=== PATIENT | male | born 1935 | race Caucasian/White ===

== ENCOUNTER 2017-07-09 20:03 | Inpatient (IN) | payer MEDICARE, OTHER ==
[~2017-07-09] VITALS: Ht 180.3 cm; Wt 77.3 kg
--- NOTE | ~2017-07-09 | HP ---
PATIENT: SEKOU MCGINNIS MEDICAL RECORD: [id number] ACCOUNT: [id number] LOCATION:[address] [address] : 35 ADMISSION DATE: 07/09/17 HISTORY AND PHYSICAL EXAMINATION REASON FOR ADMISSION: Shortness of breath and weakness. HISTORY OF PRESENT ILLNESS: The patient is an 81-year-old male with longstanding history of smoking and COPD. He states he has been weak for the last 6 months. He presented to the Emergency Room because of increasing shortness of breath and weakness, most pronounced over the last 2 weeks. He went to a grandchild's birthday in [place], [place] over the weekend. He became worse. There was coughing all the time. Sputum has been white to slightly yellow. He was more short of breath and came to the Emergency Room for that reason. Denies hemoptysis or weight change. He has been using a Nicoderm patch he bought over the counter, but he is still smoking. 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 He has had basal cell carcinomas removed from his skin on multiple occasions. Osteoarthritis, BPH, basal cell carcinoma. Aortic sclerosis and negative stress test [place] [address] Huertas. PAST SURGICAL HISTORY: As above. SOCIAL HISTORY: He has been about 3 years. Smokes heavily. Drinks minimal alcohol. He has a daughter living in town. FAMILY HISTORY: Unknown as he is adopted. MEDICATIONS: Verapamil 120 mg a day, simvastatin 40 mg at bedtime, fenofibrate 48 mg tablet 1 tablet daily, PreserVision AREDS 2 one tablet p.o. daily. ALLERGIES: None mentioned. REVIEW OF SYSTEMS: GENERAL: Fatigued for 6 months. No weight change. HEENT: No recent sinus congestion or sore throat. He has chronic difficulty with his vision due to macular degeneration. RESPIRATORY: Increasing shortness of breath and cough for the last 2 weeks, worse in the last 48 hours. Sputum has been white to yellow. No hemoptysis. CARDIAC: No exertional or rest chest pain, claudication, or edema. GASTROINTESTINAL: No nausea, vomiting, change in stools, blood per rectum, or dysphagia. ENDOCRINE: Denies polyuria, polydipsia, heat or cold intolerance. NEUROLOGIC: No history of stroke, TIA, or vascular headaches. INTEGUMENT: He has multiple keratosis, but no recent new lesions he has noted, pruritus, or icterus. GENITOURINARY: Nocturia once or twice nightly. MUSCULOSKELETAL: Chronic lumbago without sciatica. PSYCHIATRIC: Admits to chronically depressed mood. PHYSICAL EXAMINATION: VITAL SIGNS: An 81-year-old male, at this time in no acute distress, on HISTORY AND PHYSICAL [id number] SEKOU MCGINNIS H supplemental oxygen. Vital signs show a temperature of 98.3 Fahrenheit orally, pulse 93 and regular, respirations 18, blood pressure 154/93 with a sat of 95% on 2 liters. HEENT: Normocephalic. Eyes are clear. Pupils are reactive. He has fair vision. Oropharynx unremarkable. NECK: No bruits or masses. CHEST: He has distant breath sounds without wheeze or rales. HEART: Regular rate with mild aortic sclerotic murmur II/ noted. ABDOMEN: Soft. RECTAL: Deferred. EXTREMITIES: No cyanosis, clubbing, or edema. INTEGUMENT: He has multiple seborrheic and actinic keratosis on his skin. He is nonicteric. NEUROLOGICAL: He is oriented to person, place, and time. Cranial nerves are grossly intact. Gait is normal. LABORATORY DATA: Shows a white count of 8500 with 95% polys, H&H of 13 and 39.9 respectively. Chemistry: BUN and creatinine are 24 and 1.4, glucose 100. Cardiac enzymes are negative. ProBNP is 71. Potassium is 4.3. ABG showed pH of 7.442 with a pO2 of 73, CO2 of 38.6 on 2 liters. Urinalysis was unremarkable. Chest x-ray shows hyperinflation suggesting COPD, calcified granuloma in the left upper lobe, chronic rib fractures of ribs 7, 9, and 10 posteriorly on the left, patchy opacities in the lung bases possibly related to atelectasis or pneumonia. ASSESSMENT: 1. Exacerbation of chronic obstructive pulmonary disease. 2. Possible pneumonia. 3. Hypertension. 4. Hyperlipidemia. 5. Macular degeneration. 6. BPH. PLAN: The patient will be admitted for cultures, pulmonary toilet, IV antibiotics. Further workup pending clinical course. TRANSINT:[id number] Voice Confirmation ID: [id number] DOCUMENT ID: [id number] KRISTINA GLYNN MD at 2100 CC: [id number] DICTATION DATE: 07/10/17635 RADIO ELECTRONICS OFFICER: 07/10/17 0842 DIS IN 07/13/[address] [facility] [address] [place] [id number]
[2017-07-09 20:38] LABS: APPEARANCE CLEAR (CLEAR); BILIRUBIN NEGATIVE (NEGATIVE); COLOR YELLOW (YELLOW); GLUCOSE NEGATIVE (NEGATIVE); KETONE NEGATIVE (NEGATIVE); NITRITE NEGATIVE (NEGATIVE); PROTEIN NEGATIVE (NEGATIVE); UROBILINOGEN NORMAL (NORMAL)
[2017-07-09 21:09] LABS: BASOPHILS 0.2 % (0-2); EOSINOPHILS 2.5 % (0-7); HEMATOCRIT 41.6 % (42.0-54.0); HEMOGLOBIN 13.8 g/dL (13.5-17.5); IMMATURE GRANULOCYTES 0.2 % (0-5); LYMPHOCYTES 16.2 % (15-50); MCH 28.6 pg (26.0-34.0); MCHC 33.2 g/dL (31.0-37.0); MCV 86.3 fL (80.0-100.0); MEAN PLATELET VOLUME 10.2 fL (7.4-10.4); NEUTROPHILS 68.9 % (40-80); RBC 4.82 10x6/uL (4.20-6.10); RDW 14.2 % (11.5-14.5); WBC 8.5 10x3/uL (4.8-10.8)
[2017-07-09 21:11] LABS: PLATELET COUNT 262 10x3/uL (130-400)
[2017-07-09 21:14] LABS: INR 0.99 (0.85-1.17); PROTIME 12.7 SECONDS (11.6-15.0)
[2017-07-09 21:16] LABS: APTT 33.7 SECONDS (22.8-39.4)
[2017-07-09 21:17] LABS: D-DIMER-QUANTITATIVE 0.86 ug/mLFEU (0.20-0.54)
[2017-07-09 21:19] LABS: ALBUMIN 3.5 g/dL (3.4-5.0); ALKALINE PHOSPHATASE 63 U/L (46-116); ALT (SGPT) 19 U/L (10-68); BILIRUBIN - TOTAL 0.18 mg/dL (0.2-1.3); CALC OSMOLALITY 281 mosm/kg (275-300); CALCIUM 9.2 mg/dL (8.5-10.1); CARBON DIOXIDE 26.6 mmol/L (21.0-32.0); CHLORIDE - SERUM 103 mmol/L (98-107); CREATININE - SERUM 1.4 mg/dL (0.6-1.3); GLUCOSE 101 mg/dL (74-106); POTASSIUM - SERUM 4.3 mmol/L (3.5-5.1); PROTEIN - SERUM 7.5 g/dL (6.4-8.2); SODIUM 139 mmol/L (136-145); UREA NITROGEN 24 mg/dL (7-18); eGFR NON AFRICAN AMERICAN 52 mL/min (90-120)
[2017-07-09 21:42] LABS: CKMB 2.5 U/L (0.0-3.6); CREATINE KINASE 102 UL (21-232); PRO BNP 71 pg/mL (0-450)
[2017-07-09 21:46] LABS: TROPONIN-I < 0.017 ng/mL (0.000-0.060)
[2017-07-10 05:02] LABS: BASOPHILS 0 % (0-2); EOSINOPHILS 0 % (0-7); HEMATOCRIT 39.9 % (42.0-54.0); IMMATURE GRANULOCYTES 0.1 % (0-5); LYMPHOCYTES 4.4 % (15-50); MCHC 32.6 g/dL (31.0-37.0); MCV 85.8 fL (80.0-100.0); MEAN PLATELET VOLUME 10.3 fL (7.4-10.4); NEUTROPHILS 94.5 % (40-80); PLATELET COUNT 251 10x3/uL (130-400); RBC 4.65 10x6/uL (4.20-6.10); RDW 14.1 % (11.5-14.5); WBC 8.4 10x3/uL (4.8-10.8)
[2017-07-10 05:19] LABS: ALBUMIN 3.4 g/dL (3.4-5.0); ANION GAP 13.8 mmol/L (8-16); BILIRUBIN - TOTAL 0.2 mg/dL (0.2-1.3); CALCIUM 9.3 mg/dL (8.5-10.1); CARBON DIOXIDE 22.8 mmol/L (21.0-32.0); CREATININE - SERUM 1.2 mg/dL (0.6-1.3); POTASSIUM - SERUM 4.6 mmol/L (3.5-5.1); PROTEIN - SERUM 6.7 g/dL (6.4-8.2)
[2017-07-10] MEDS ORDERED: XANAX0.25 MG PO (16:23)
[2017-07-10 16:25] VITALS: BP 149/78
[2017-07-10 16:45] VITALS: BP 149/78; Ht 180.3 cm; Wt 77.3 kg
[2017-07-10 21:54] VITALS: BP 128/64
[2017-07-11 01:01] VITALS: BP 115/50
[2017-07-11 04:47] VITALS: BP 124/64
[2017-07-11 07:57] VITALS: BP 127/61
[2017-07-11 12:01] VITALS: BP 119/61
[2017-07-11 16:02] VITALS: BP 128/74
[2017-07-11 21:03] VITALS: BP 165/75
[2017-07-12] VITALS (8 sets, daily range): BP systolic 115–174; BP diastolic 52–84
[2017-07-12] MEDS ORDERED: PRESERVISION AR1 CAP PO (12:44)
[2017-07-13 04:29] VITALS: BP 133/72
[2017-07-13 08:40] VITALS: BP 164/81
[2017-07-13 12:36] VITALS: BP 150/73
[2017-07-13] MEDS ORDERED: TRICOR48 MG PO (12:36)
[2017-07-13] MEDS ORDERED: ZOCOR20 MG PO (12:37)
[2017-07-13] MEDS ORDERED: CALAN SR120 MG PO (12:37)
[2017-07-13] MEDS ORDERED: AUGMENTIN 875-11 TAB PO (12:42)
[2017-07-13] MEDS ORDERED: VENTOLIN HFA18 GM INH (12:42)
[2017-07-13] MEDS ORDERED: MEDROL DOSE PACK4 MG PO (12:42)
== END 2017-07-13 13:30 | disposition home or self-care (01) | DRG 190 ==
LOC: D.ER 20:03 → D.EDHOLD 23:00 → D.MS 23:00
PROVIDERS: Family Medicine
DX: J44.0 Chronic obstructive pulmonary disease with (acute) lower respiratory infection (principal); J18.9 Pneumonia, unspecified organism; J44.1 Chronic obstructive pulmonary disease with (acute) exacerbation; I10 Essential (primary) hypertension; E78.5 Hyperlipidemia, unspecified; H35.30 Unspecified macular degeneration; N40.0 Benign prostatic hyperplasia without lower urinary tract symptoms; F17.200 Nicotine dependence, unspecified, uncomplicated

== ENCOUNTER → 2017-09-03 08:12 | Outpatient (CLI) | payer MEDICARE, OTHER ==
[2017-07-10 16:45] VITALS: BMI 23.7
[~2017-09-03 08:12] MED LIST: AUGMENTIN 875-11 TAB PO; CALAN SR120 MG PO; MEDROL DOSE PACK4 MG PO; PRESERVISION AR1 CAP PO; TRICOR48 MG PO; VENTOLIN HFA18 GM INH; XANAX0.25 MG PO; ZOCOR20 MG PO
== END | disposition home or self-care (01) ==
LOC: D.CT 08:12
DX: J18.9 Pneumonia, unspecified organism (principal)

== ENCOUNTER 2017-10-30 17:59 | Inpatient (IN) | payer MEDICARE, OTHER ==
[~2017-10-30] VITALS: Ht 180.3 cm; Wt 75.5 kg
--- NOTE | ~2017-10-30 | HP ---
PATIENT: SEKOU MCGINNIS MEDICAL RECORD: [id number] ACCOUNT: [id number] LOCATION:[address] : 35 ADMISSION DATE: 10/30/17 HISTORY AND PHYSICAL EXAMINATION REASON FOR ADMISSION: Nausea with epigastric pain. HISTORY OF PRESENT ILLNESS: The patient is an 82-year-old male with history of hyperlipidemia and COPD. He, 2 days ago after eating 2 egg rolls, developed some epigastric discomfort and nausea. It lasted throughout the day yesterday and the pain became more intense. He initially had some dark stools for some time as well, but he had been taking probiotics likely that caused stool color change. He denies taking oral medications. Nonetheless, he came to the emergency room for this reason and was found to have an elevated lipase and amylase and was admitted for further evaluation. He denies any fatty food intolerance or history of previous gallbladder disease, but he does have a history of CT evident calcification in his pancreas suggesting chronic pancreatitis. He is not an alcohol drinker, but is a heavy smoker. PAST MEDICAL HISTORY: Hospitalized 07/03 for exacerbation of COPD. PFTs in 2016 showed FEV1 of 1.46 at 54% of predicted. History of keratoacanthoma removed from his nose. Basal cell carcinomas removed from his skin multiple times. Osteoarthritis, hyperlipidemia, BPH, aortic sclerosis. He had negative stress test in 2016. PAST SURGICAL HISTORY: Skin cancers removed as above, otherwise negative. SOCIAL HISTORY: He has been for 5 years. Heavy smoker. Drinks no alcohol at all. ALLERGIES: None mentioned. FAMILY HISTORY: Unknown as he is adopted. HOME MEDICATIONS: Augmentin 875 b.i.d. started 2 days ago for upper respiratory tract infection, HFA Ventolin inhaler 1-2 puffs every 6 hours p.r.n., TriCor 48 mg daily, Zocor 40 mg at bedtime, Calan SR 120 mg p.o. daily, Xanax 0.25 t.i.d. p.r.n. anxiety, Medrol Dosepak started 10/30, PreserVision 1 cap p.o. b.i.d., probiotics 1 p.o. daily. REVIEW OF SYSTEMS: GENERAL: He has had no fever, fatigue, or weight change. HEENT: No recent visual change. He has had sinus congestion and off color rhinorrhea. CARDIAC: Denies chest pain, palpitations, edema, or claudication symptoms. RESPIRATORY: He has had a productive yellow-green cough recently without hemoptysis. GASTROINTESTINAL: Nausea without vomiting. He has had some dark stools recently. Epigastric pain for the last 24 hours. No prior history of gallbladder disease or peptic ulcer disease. He can not remember when he had his last colonoscopy or who performed it. GENITOURINARY: Nocturia once nightly. ENDOCRINE: Denies polyuria, polydipsia, heat or cold intolerance. INTEGUMENTARY: No rash or itching or new skin lesions. NEUROLOGIC: Denies history of strokes, headaches, seizures, memory loss, or HISTORY AND PHYSICAL [id number] SEKOU MCGINNIS balance issues. PSYCHIATRIC: Denies depressed mood. PHYSICAL EXAMINATION: VITAL SIGNS: Temperature is 98.7, respirations are 22, blood pressure 150/92, O2 sat of 96% on room air. HEENT: Normocephalic. Eyes are clear with arcus senilis OU. Oropharynx is unremarkable. NECK: Supple, without bruits or masses. CHEST: He has faint wheezes in the upper lobes without rales on forced expiration. HEART: Regular without murmur. PMI appropriate. ABDOMEN: Epigastric area is minimally tender to deep palpation. Bowel sounds are active. RECTAL: Revealed no stool in the vault. GENITOURINARY: Prostate is minimally enlarged. No suspicious nodules. EXTREMITIES: No CC&E. INTEGUMENT: Scarring from previous skin biopsies, several seborrheic keratoses noted. LABORATORY DATA: Shows a white count of 8000, H&H of 9.3 and 30.3 with an MCV of 76.7, platelet count of 345,000. Chemistry is unremarkable. Glucose is 87. Iron is low at 12. TIBC is normal at 377. Iron saturation is low at 3. Ferritin is 12. Liver functions are normal. Amylase of 430. Lipase of 2030. UA; trace protein, otherwise negative. Chest x-ray shows patchy right lower lobe airspace disease representing atelectasis or pneumonia. CT of abdomen and pelvis: Calcification in the pancreas suggesting chronic pancreatitis, mild inflammatory changes adjacent to the peripancreatic fat, bilateral renal cysts, abdominal aortic aneurysm of 4 x 4.2 cm, and arthritis in the lumbar spine. ASSESSMENT: 1. Kdzhi-um-vvfpnad pancreatitis, etiology unknown. 2. Iron-deficiency anemia, suspected GI blood loss. 3. Asymptomatic aortic aneurysm. 4. Chronic obstructive pulmonary disease. 5. Bronchitis. 6. Hyperlipidemia. 7. Renal cysts, benign appearing. PLAN: We will hold TriCor and Zocor at this time. N.p.o. status. Check stool for occult blood. Place on Pepcid and Protonix. GI consult. Further workup pending clinical course. TRANSINT:[id number] Voice Confirmation ID: [id number] DOCUMENT ID: [id number] HISTORY AND PHYSICAL [id number] SEKOU MCGINNIS TIMOTHY MD at 1954 CC: [id number] DICTATION DATE: 10/31/17716 REVIEW SCHEDULING COORDINATOR: 10/31/17 08 ADM IN [place] [id number] [place] [id number]
[2017-10-30 18:55] LABS: BASOPHILS 0.1 % (0-2); EOSINOPHILS 3.7 % (0-7); HEMATOCRIT 30.3 % (42.0-54.0); HEMOGLOBIN 9.3 g/dL (13.5-17.5); IMMATURE GRANULOCYTES 0.2 % (0-5); LYMPHOCYTES 9.8 % (15-50); MCH 23.5 pg (26.0-34.0); MCHC 30.7 g/dL (31.0-37.0); MCV 76.7 fL (80.0-100.0); MEAN PLATELET VOLUME 9.3 fL (7.4-10.4); MONOCYTES 10.6 % (2-11); NEUTROPHILS 75.6 % (40-80); PLATELET COUNT 345 10x3/uL (130-400); RBC 3.95 10x6/uL (4.20-6.10); RDW 15.6 % (11.5-14.5); WBC 8.3 10x3/uL (4.8-10.8)
[2017-10-30 19:18] LABS: ALBUMIN 3.7 g/dL (3.4-5.0); ALKALINE PHOSPHATASE 57 U/L (46-116); ALT (SGPT) 16 U/L (10-68); BILIRUBIN - TOTAL 0.23 mg/dL (0.2-1.3); CALC OSMOLALITY 278 mosm/kg (275-300); CALCIUM 9.2 mg/dL (8.5-10.1); CARBON DIOXIDE 28.6 mmol/L (21.0-32.0); CHLORIDE - SERUM 103 mmol/L (98-107); CREATININE - SERUM 1.2 mg/dL (0.6-1.3); GLUCOSE 114 mg/dL (74-106); PROTEIN - SERUM 7.1 g/dL (6.4-8.2); SODIUM 138 mmol/L (136-145); UREA NITROGEN 18 mg/dL (7-18); eGFR NON AFRICAN AMERICAN 61 mL/min (90-120)
[2017-10-30 19:21] LABS: AMYLASE - SERUM 284 U/L (25-115)
[2017-10-30 19:30] LABS: LIPASE 1773 U/L (73-393); TROPONIN-I < 0.017 ng/mL (0.000-0.060)
[2017-10-30 21:00] VITALS: BP 146/81
[2017-10-30 21:16] LABS: COLOR YELLOW (YELLOW)
[2017-10-30 21:17] LABS: APPEARANCE CLEAR (CLEAR); BILIRUBIN NEGATIVE (NEGATIVE); GLUCOSE NEGATIVE (NEGATIVE); KETONE NEGATIVE (NEGATIVE); NITRITE NEGATIVE (NEGATIVE); PROTEIN TRACE mg/dL (NEGATIVE); UROBILINOGEN NORMAL (NORMAL)
[2017-10-30 23:23] VITALS: BMI 24.0
[2017-10-31] VITALS: BP 156/84
[2017-10-31 04:00] VITALS: BP 139/78
[2017-10-31 05:39] LABS: BASOPHILS 0.1 % (0-2); EOSINOPHILS 2.3 % (0-7); IMMATURE GRANULOCYTES 0.1 % (0-5); LYMPHOCYTES 7.8 % (15-50); MCH 23.6 pg (26.0-34.0); MCHC 30.8 g/dL (31.0-37.0); MCV 76.7 fL (80.0-100.0); MEAN PLATELET VOLUME 9.3 fL (7.4-10.4); MONOCYTES 12.8 % (2-11); NEUTROPHILS 76.9 % (40-80); PLATELET COUNT 294 10x3/uL (130-400); RBC 3.39 10x6/uL (4.20-6.10); RDW 15.5 % (11.5-14.5)
[2017-10-31 06:09] LABS: ALBUMIN 3.2 g/dL (3.4-5.0); ANION GAP 10.1 mmol/L (8-16); BILIRUBIN - TOTAL 0.27 mg/dL (0.2-1.3); CALCIUM 8.6 mg/dL (8.5-10.1); CARBON DIOXIDE 26.2 mmol/L (21.0-32.0); CREATININE - SERUM 1.1 mg/dL (0.6-1.3); POTASSIUM - SERUM 4.3 mmol/L (3.5-5.1); PROTEIN - SERUM 6.3 g/dL (6.4-8.2)
[2017-10-31 06:34] LABS: % SATURATION 3 % (15-55); IRON 12 ug/dl (35-150); TOTAL IRON BIND CAPACITY 377 ug/dl (260-445); UNSAT IRON BIND CAPACITY 365 ug/dl (150-375)
[2017-10-31 07:00] LABS: FERRITIN 12 ng/mL (3-244); LDH 142 U/L (85-227)
[2017-10-31 07:47] LABS: INR 1.09 (0.85-1.17); PROTIME 13.7 SECONDS (11.6-15.0)
[2017-10-31 07:48] LABS: APTT 31.7 SECONDS (22.8-39.4)
[2017-10-31 08:36] VITALS: BP 154/88
[2017-10-31 09:07] LABS: HELICOBACTER PYLORI IGG POSITIVE (NEGATIVE)
[2017-10-31 12:33] VITALS: BP 166/60
[2017-10-31 13:57] VITALS: Ht 180.3 cm; Wt 75.5 kg
[2017-10-31 17:21] VITALS: BP 145/87
[2017-10-31 21:09] VITALS: BP 157/91
[2017-11-01 05:49] LABS: BASOPHILS 0.2 % (0-2); EOSINOPHILS 5.6 % (0-7); HEMATOCRIT 26.9 % (42.0-54.0); HEMOGLOBIN 8.2 g/dL (13.5-17.5); LYMPHOCYTES 11.5 % (15-50); MCH 23.4 pg (26.0-34.0); MCHC 30.5 g/dL (31.0-37.0); MCV 76.9 fL (80.0-100.0); MEAN PLATELET VOLUME 9.4 fL (7.4-10.4); MONOCYTES 13.3 % (2-11); NEUTROPHILS 69.4 % (40-80); PLATELET COUNT 278 10x3/uL (130-400); RDW 15.4 % (11.5-14.5); WBC 6.3 10x3/uL (4.8-10.8)
[2017-11-01 05:50] VITALS: BP 147/80
[2017-11-01 06:03] LABS: ALBUMIN 3.1 g/dL (3.4-5.0); ALKALINE PHOSPHATASE 51 U/L (46-116); BILIRUBIN - DIRECT 0.09 mg/dL (0.00-0.30); BILIRUBIN - INDIRECT 0.13 mg/dL (0.00-1.00); BILIRUBIN - TOTAL 0.22 mg/dL (0.2-1.3); CALCIUM 8.8 mg/dL (8.5-10.1); CARBON DIOXIDE 25.7 mmol/L (21.0-32.0); CHLORIDE - SERUM 107 mmol/L (98-107); CHOL - HDL RATIO 3.9 ratio (2.3-4.9); CHOLESTEROL, TOTAL 121 mg/dL (0-200); GLUCOSE 75 mg/dL (74-106); HDL CHOLESTEROL 31 mg/dL (32-96); LDL CHOLESTEROL 69 mg/dL (0-100); LDL-HDL RATIO 2.2 ratio (1.5-3.5); LIPASE 565 U/L (73-393); PROTEIN - SERUM 6.2 g/dL (6.4-8.2); SODIUM 140 mmol/L (136-145); TRIGLYCERIDE 109 mg/dL (30-200); eGFR NON AFRICAN AMERICAN 76 mL/min (90-120)
[2017-11-01 06:06] LABS: ALT (SGPT) 16 U/L (10-68); AMYLASE - SERUM 278 U/L (25-115); CALC OSMOLALITY 276 mosm/kg (275-300); POTASSIUM - SERUM 3.6 mmol/L (3.5-5.1); UREA NITROGEN 10 mg/dL (7-18)
[2017-11-01 08:25] VITALS: BP 153/85
[2017-11-01 11:38] VITALS: BP 162/80
[2017-11-01 15:22] VITALS: BP 152/81
[2017-11-01 20:22] VITALS: BP 149/79
[2017-11-02] VITALS: BP 142/73
[2017-11-02 06:33] LABS: BASOPHILS 0.2 % (0-2); EOSINOPHILS 5.7 % (0-7); HEMATOCRIT 26.3 % (42.0-54.0); IMMATURE GRANULOCYTES 0.2 % (0-5); LYMPHOCYTES 14.8 % (15-50); MCH 23.1 pg (26.0-34.0); MCHC 30.4 g/dL (31.0-37.0); MCV 75.8 fL (80.0-100.0); MEAN PLATELET VOLUME 9.5 fL (7.4-10.4); MONOCYTES 15.3 % (2-11); NEUTROPHILS 63.8 % (40-80); PLATELET COUNT 295 10x3/uL (130-400); RBC 3.47 10x6/uL (4.20-6.10); RDW 15.4 % (11.5-14.5)
[2017-11-02 06:35] VITALS: BP 176/95
[2017-11-02 06:51] LABS: ALKALINE PHOSPHATASE 54 U/L (46-116); BILIRUBIN - DIRECT 0.07 mg/dL (0.00-0.30); BILIRUBIN - INDIRECT 0.17 mg/dL (0.00-1.00); BILIRUBIN - TOTAL 0.24 mg/dL (0.2-1.3); CALC OSMOLALITY 271 mosm/kg (275-300); CARBON DIOXIDE 25.5 mmol/L (21.0-32.0); CHLORIDE - SERUM 106 mmol/L (98-107); GLUCOSE 91 mg/dL (74-106); LIPASE 488 U/L (73-393); POTASSIUM - SERUM 3.5 mmol/L (3.5-5.1); PROTEIN - SERUM 6.1 g/dL (6.4-8.2); SODIUM 137 mmol/L (136-145); UREA NITROGEN 8 mg/dL (7-18); eGFR NON AFRICAN AMERICAN 76 mL/min (90-120)
[2017-11-02 06:54] LABS: ALT (SGPT) 10 U/L (10-68); AMYLASE - SERUM 189 U/L (25-115)
[2017-11-02 07:53] VITALS: BP 151/87
[2017-11-02 11:57] VITALS: BP 152/85
[2017-11-02] MEDS ORDERED: AMOXICILLIN500 M1 PO (15:39)
[2017-11-02] MEDS ORDERED: FERROUS SULFAT325 MG PO (15:39)
[2017-11-02] MEDS ORDERED: OMEPRAZOLE20 M1 PO (15:39)
[2017-11-02] MEDS ORDERED: BIAXIN 500 MG500 MG PO (15:39)
== END 2017-11-02 18:00 | disposition home or self-care (01) | DRG 439 ==
LOC: D.ER 17:59 → D.EDHOLD 21:24 → D.M2 21:24
PROVIDERS: Family Medicine
DX: K85.90 Acute pancreatitis without necrosis or infection, unspecified (principal); J44.1 Chronic obstructive pulmonary disease with (acute) exacerbation; B96.81 Helicobacter pylori [H. pylori] as the cause of diseases classified elsewhere; D50.0 Iron deficiency anemia secondary to blood loss (chronic); I71.4 Abdominal aortic aneurysm, without rupture; J40 Bronchitis, not specified as acute or chronic; E78.5 Hyperlipidemia, unspecified; N28.1 Cyst of kidney, acquired

== ENCOUNTER 2017-12-04 03:15 | Inpatient (IN) | payer MEDICARE, OTHER ==
[~2017-12-04] VITALS: Ht 180.3 cm; Wt 74.7 kg
--- NOTE | ~2017-12-04 | HP ---
PATIENT: SEKOU MCGINNIS MEDICAL RECORD: [id number] ACCOUNT: [id number] LOCATION:[address] : 35 ADMISSION DATE: 12/04/17 PCP: No PCP HISTORY AND PHYSICAL EXAMINATION REASON FOR ADMISSION: Abdominal pain. HISTORY OF PRESENT ILLNESS: The patient is an 82-year-old male who was hospitalized approximately a month ago for idiopathic yjtdu-fa-ldokzgy pancreatitis. He came in last evening due to similar abdominal pain and amylase and lipase were elevated in the low [address] confirmed diagnosis of fszve-lp-vjfgofr pancreatitis. He has had no nausea, vomiting, change in stools or blood per rectum. He has not had alcohol use in over 50 years and was never a heavy alcohol drinker. He was in the office last week with a lipase of 200 only and was placed on a low residue diet. He has not been taking Creon as prescribed. 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 SURGICAL HISTORY: Multiple skin cancers removed from his nose and face. SOCIAL HISTORY: for 5 years. Heavy smoker. Nondrinker in over 50 years, never heavy. FAMILY HISTORY: Unknown as he is adopted. ALLERGIES: None mentioned. CURRENT MEDICATIONS: Ferrous sulfate 325 mg a day, TriCor 48 mg p.o. daily, simvastatin 20 mg at bedtime, verapamil SR 120 mg p.o. daily, Xanax 0.25 t.i.d. p.r.n. anxiety, omeprazole 20 mg p.o. daily, PreserVision AREDS 1 cap p.o. b.i.d. REVIEW OF SYSTEMS: GENERAL: He has had slight weight loss. No fever. HEENT: No recent or new visual change, sinus congestion or sore throat. RESPIRATORY: Has mild dyspnea on exertion. No recent cough, sputum production or hemoptysis. CARDIAC: No exertional chest pain, claudication or edema. GASTROINTESTINAL: As above. No bloody stool per rectum. Denies fatty food intolerance. PHYSICAL EXAMINATION: VITAL SIGNS: Temperature 97.3 Fahrenheit, respirations 18, blood pressure 186/90, saturations 96%. GENERAL: The patient is in moderate distress due to pain. HEENT: Eyes are clear. Oropharynx unremarkable. NECK: No bruits or masses. CHEST: Distant breath sounds without wheeze or rales. HEART: Regular without murmur. ABDOMEN: Soft. He is tender in the epigastrium and right lower quadrant without rebound. Bowel sounds are hypoactive. HISTORY AND PHYSICAL [id number] CULLIVER,SEKOU H RECTAL: No stool in the vault. EXTREMITIES: No CC&E. SKIN: He has multiple scars on his nose and face from previous biopsies. PSYCHIATRIC: Denies depressed mood. LABORATORY DATA: White count of 6600 with an H&H of 10.7 and 33.8. Chemistry is normal except for BUN of 20. Liver functions are normal. Amylase 325, lipase was 2023. 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 ASSESSMENT: Ypesj-bp-ththnis pancreatitis. He has no significant risk factors except for medication including Prilosec and simvastatin. We will continue IV fluids, follow lipase levels. Dr. Powers will see the patient as well. Resume Creon, he did not take previously and have cardiovascular consult concerning his aneurysm which appears enlarging. Also more aggressively treat his blood pressure. TRANSINT:[id number] Voice Confirmation ID: [id number] DOCUMENT ID: [id number] KRISTINA GLYNN MD at 0755 CC: [id number] DICTATION DATE: 12/04/171723 POULTRY PICKING MACHINE TENDER: 12/04/171754 ADM IN [place] [address] [place] [address]
[~2017-12-04 03:15] MED LIST changes: +AMOXICILLIN500 M1 PO; +BIAXIN 500 MG500 MG PO; +FERROUS SULFAT325 MG PO; +OMEPRAZOLE20 M1 PO
[2017-12-04 03:55] LABS: BASOPHILS 0.2 % (0-2); EOSINOPHILS 7.9 % (0-7); HEMATOCRIT 33.8 % (42.0-54.0); HEMOGLOBIN 10.7 g/dL (13.5-17.5); IMMATURE GRANULOCYTES 0.2 % (0-5); LYMPHOCYTES 21.5 % (15-50); MCH 24.7 pg (26.0-34.0); MCHC 31.7 g/dL (31.0-37.0); MCV 77.9 fL (80.0-100.0); MEAN PLATELET VOLUME 9.1 fL (7.4-10.4); MONOCYTES 12.3 % (2-11); NEUTROPHILS 57.9 % (40-80); PLATELET COUNT 272 10x3/uL (130-400); RBC 4.34 10x6/uL (4.20-6.10); RDW 19.1 % (11.5-14.5); WBC 6.6 10x3/uL (4.8-10.8)
[2017-12-04 04:09] LABS: ALBUMIN 3.4 g/dL (3.4-5.0); ALKALINE PHOSPHATASE 90 U/L (46-116); ALT (SGPT) 36 U/L (10-68); CALC OSMOLALITY 279 mosm/kg (275-300); CALCIUM 9.6 mg/dL (8.5-10.1); CARBON DIOXIDE 24.5 mmol/L (21.0-32.0); CHLORIDE - SERUM 103 mmol/L (98-107); CREATININE - SERUM 1.1 mg/dL (0.6-1.3); GLUCOSE 115 mg/dL (74-106); POTASSIUM - SERUM 3.7 mmol/L (3.5-5.1); SODIUM 138 mmol/L (136-145); UREA NITROGEN 20 mg/dL (7-18); eGFR NON AFRICAN AMERICAN 68 mL/min (90-120)
[2017-12-04 04:11] LABS: AMYLASE - SERUM 325 U/L (25-115); LIPASE 2024 U/L (73-393); TROPONIN-I < 0.017 ng/mL (0.000-0.060)
[2017-12-04 06:19] LABS: APPEARANCE CLEAR (CLEAR); BACTERIA NONE SEEN /hpf (NONE SEEN); BILIRUBIN NEGATIVE (NEGATIVE); COLOR YELLOW (YELLOW); EPITHELIAL CELLS OCC /hpf (0-5); GLUCOSE NEGATIVE (NEGATIVE); KETONE NEGATIVE (NEGATIVE); NITRITE NEGATIVE (NEGATIVE); PROTEIN 1+ mg/dL (NEGATIVE); RED CELLS - URINE NONE SEEN /hpf (0-5); UROBILINOGEN NORMAL (NORMAL); WHITE CELLS - URINE NSEEN /hpf (0-5); YEAST NONE SEEN /hpf (NONE SEEN)
[2017-12-04 06:20] LABS: MUCUS NONE SEEN /lpf (NONE SEEN)
[2017-12-04 15:28] VITALS: BP 172/86; BMI 22.6
[2017-12-04 15:38] VITALS: BP 172/86
[2017-12-04 20:00] VITALS: BP 141/73
[2017-12-05 04:00] VITALS: BP 154/75
[2017-12-05 06:16] LABS: BASOPHILS 0 % (0-2); EOSINOPHILS 0 % (0-7); HEMATOCRIT 33.1 % (42.0-54.0); HEMOGLOBIN 10.1 g/dL (13.5-17.5); IMMATURE GRANULOCYTES 0.2 % (0-5); LYMPHOCYTES 3.7 % (15-50); MCH 24.2 pg (26.0-34.0); MCHC 30.5 g/dL (31.0-37.0); MCV 79.4 fL (80.0-100.0); MEAN PLATELET VOLUME 10.1 fL (7.4-10.4); MONOCYTES 6.8 % (2-11); NEUTROPHILS 89.3 % (40-80); PLATELET COUNT 261 10x3/uL (130-400); RBC 4.17 10x6/uL (4.20-6.10); RDW 19.3 % (11.5-14.5)
[2017-12-05 06:32] LABS: WBC 10.4 10x3/uL (4.8-10.8)
[2017-12-05 06:36] LABS: CALC OSMOLALITY 278 mosm/kg (275-300); CALCIUM 9.2 mg/dL (8.5-10.1); CARBON DIOXIDE 25.5 mmol/L (21.0-32.0); CHLORIDE - SERUM 105 mmol/L (98-107); GLUCOSE 96 mg/dL (74-106); LIPASE 1205 U/L (73-393); POTASSIUM - SERUM 3.8 mmol/L (3.5-5.1); SODIUM 139 mmol/L (136-145); UREA NITROGEN 15 mg/dL (7-18); eGFR NON AFRICAN AMERICAN 76 mL/min (90-120)
[2017-12-05 06:40] LABS: AMYLASE - SERUM 548 U/L (25-115)
[2017-12-05 07:44] VITALS: BP 141/75
[2017-12-05 10:53] VITALS: Ht 180.3 cm; Wt 74.7 kg
[2017-12-05 11:16] VITALS: BP 148/72
[2017-12-05 15:33] VITALS: BP 155/74
[2017-12-05 21:38] VITALS: BP 177/87
[2017-12-06 00:40] VITALS: BP 189/89
[2017-12-06 06:00] VITALS: BP 156/81
[2017-12-06 06:21] LABS: BASOPHILS 0 % (0-2); EOSINOPHILS 0 % (0-7); HEMATOCRIT 31.5 % (42.0-54.0); HEMOGLOBIN 9.6 g/dL (13.5-17.5); IMMATURE GRANULOCYTES 0.2 % (0-5); LYMPHOCYTES 2.7 % (15-50); MCH 24.2 pg (26.0-34.0); MCHC 30.5 g/dL (31.0-37.0); MCV 79.3 fL (80.0-100.0); MONOCYTES 7.3 % (2-11); NEUTROPHILS 89.8 % (40-80); PLATELET COUNT 251 10x3/uL (130-400); RBC 3.97 10x6/uL (4.20-6.10); RDW 19.1 % (11.5-14.5); WBC 12.5 10x3/uL (4.8-10.8)
[2017-12-06 06:28] VITALS: BP 164/83
[2017-12-06 06:40] LABS: CALC OSMOLALITY 283 mosm/kg (275-300); CALCIUM 9.4 mg/dL (8.5-10.1); CHLORIDE - SERUM 106 mmol/L (98-107); CHOL - HDL RATIO 3.1 ratio (2.3-4.9); CHOLESTEROL, TOTAL 89 mg/dL (0-200); CREATININE - SERUM 0.9 mg/dL (0.6-1.3); GLUCOSE 103 mg/dL (74-106); HDL CHOLESTEROL 29 mg/dL (32-96); LDL CHOLESTEROL 47 mg/dL (0-100); LDL-HDL RATIO 1.6 ratio (1.5-3.5); LIPASE 629 U/L (73-393); POTASSIUM - SERUM 3.6 mmol/L (3.5-5.1); SODIUM 141 mmol/L (136-145); TRIGLYCERIDE 68 mg/dL (30-200); eGFR NON AFRICAN AMERICAN 86 mL/min (90-120)
[2017-12-06 06:42] LABS: AMYLASE - SERUM 264 U/L (25-115); UREA NITROGEN 20 mg/dL (7-18)
[2017-12-06 17:13] VITALS: BP 164/85
[2017-12-06 20:00] VITALS: BP 179/97
[2017-12-07] VITALS: BP 151/84
[2017-12-07 04:00] VITALS: BP 168/85
[2017-12-07 05:25] LABS: BASOPHILS 0.1 % (0-2); EOSINOPHILS 0.1 % (0-7); HEMATOCRIT 29.9 % (42.0-54.0); HEMOGLOBIN 9.1 g/dL (13.5-17.5); IMMATURE GRANULOCYTES 0.1 % (0-5); LYMPHOCYTES 5.9 % (15-50); MCH 24.1 pg (26.0-34.0); MCHC 30.4 g/dL (31.0-37.0); MCV 79.3 fL (80.0-100.0); MEAN PLATELET VOLUME 9.7 fL (7.4-10.4); MONOCYTES 10.1 % (2-11); NEUTROPHILS 83.7 % (40-80); PLATELET COUNT 238 10x3/uL (130-400); RBC 3.77 10x6/uL (4.20-6.10); RDW 18.9 % (11.5-14.5); WBC 9.5 10x3/uL (4.8-10.8)
[2017-12-07 05:31] LABS: CALC OSMOLALITY 279 mosm/kg (275-300); CALCIUM 9.2 mg/dL (8.5-10.1); CARBON DIOXIDE 25.5 mmol/L (21.0-32.0); CHLORIDE - SERUM 108 mmol/L (98-107); CREATININE - SERUM 0.9 mg/dL (0.6-1.3); GLUCOSE 80 mg/dL (74-106); LIPASE 336 U/L (73-393); POTASSIUM - SERUM 3.9 mmol/L (3.5-5.1); SODIUM 140 mmol/L (136-145); UREA NITROGEN 18 mg/dL (7-18); eGFR NON AFRICAN AMERICAN 86 mL/min (90-120)
[2017-12-07 05:32] LABS: AMYLASE - SERUM 120 U/L (25-115)
[2017-12-07 06:14] LABS: CEA 1.8 ng/mL (0.0-4.7)
[2017-12-07 08:30] VITALS: BP 145/85
[2017-12-07 12:58] VITALS: BP 165/80
[2017-12-07 16:11] VITALS: BP 144/76
[2017-12-07 21:12] VITALS: BP 158/80
[2017-12-08 00:20] VITALS: BP 144/69
[2017-12-08 05:44] VITALS: BP 156/72
[2017-12-08 05:56] LABS: BASOPHILS 0.1 % (0-2); EOSINOPHILS 0.2 % (0-7); HEMATOCRIT 30.5 % (42.0-54.0); HEMOGLOBIN 9.3 g/dL (13.5-17.5); IMMATURE GRANULOCYTES 0.1 % (0-5); LYMPHOCYTES 8.4 % (15-50); MCHC 30.5 g/dL (31.0-37.0); MCV 78.6 fL (80.0-100.0); MEAN PLATELET VOLUME 9.7 fL (7.4-10.4); MONOCYTES 13.1 % (2-11); NEUTROPHILS 78.1 % (40-80); PLATELET COUNT 267 10x3/uL (130-400); RBC 3.88 10x6/uL (4.20-6.10); RDW 18.9 % (11.5-14.5); WBC 8.1 10x3/uL (4.8-10.8)
[2017-12-08 06:20] LABS: ALBUMIN 2.3 g/dL (3.4-5.0); ALKALINE PHOSPHATASE 67 U/L (46-116); ALT (SGPT) 20 U/L (10-68); AMYLASE - SERUM 121 U/L (25-115); BILIRUBIN - TOTAL 0.15 mg/dL (0.2-1.3); CALC OSMOLALITY 281 mosm/kg (275-300); CALCIUM 9.2 mg/dL (8.5-10.1); CARBON DIOXIDE 26.2 mmol/L (21.0-32.0); CHLORIDE - SERUM 106 mmol/L (98-107); CREATININE - SERUM 0.8 mg/dL (0.6-1.3); GLUCOSE 79 mg/dL (74-106); LIPASE 450 U/L (73-393); POTASSIUM - SERUM 3.8 mmol/L (3.5-5.1); PROTEIN - SERUM 5.7 g/dL (6.4-8.2); SODIUM 141 mmol/L (136-145); UREA NITROGEN 17 mg/dL (7-18); eGFR NON AFRICAN AMERICAN > 90 mL/min (90-120)
[2017-12-08 07:57] VITALS: BP 176/81
[2017-12-08 13:33] VITALS: BP 161/84
[2017-12-08 16:28] VITALS: BP 172/92
[2017-12-08 21:17] VITALS: BP 164/83
[2017-12-09 01:32] VITALS: BP 172/85
[2017-12-09 05:52] VITALS: BP 181/80
[2017-12-09 08:38] VITALS: BP 173/87
[2017-12-09 11:48] VITALS: BP 172/76
[2017-12-09 15:56] VITALS: BP 168/75
[2017-12-09] MEDS ORDERED: CALAN120 MG PO (20:14)
[2017-12-09] MEDS ORDERED: CARAFATE1 G/10 ML PO (20:15)
[2017-12-09] MEDS ORDERED: PEPCID PO (20:15)
== END 2017-12-09 21:15 | disposition home or self-care (01) | DRG 439 ==
LOC: D.ER 03:15 → D.M2 05:48 → D.EDHOLD 05:48 → D.M2 14:15
PROVIDERS: Family Medicine; Internal Medicine Gastroenterology
DX: K85.00 Idiopathic acute pancreatitis without necrosis or infection (principal); K86.2 Cyst of pancreas; I10 Essential (primary) hypertension; J44.9 Chronic obstructive pulmonary disease, unspecified; E78.5 Hyperlipidemia, unspecified; N40.0 Benign prostatic hyperplasia without lower urinary tract symptoms; M19.90 Unspecified osteoarthritis, unspecified site; D50.9 Iron deficiency anemia, unspecified; Z72.0 Tobacco use; I71.4 Abdominal aortic aneurysm, without rupture

== ENCOUNTER 2018-01-30 11:22 | Inpatient (IN) | payer MEDICARE, OTHER ==
[~2018-01-30] VITALS: Ht 180.3 cm; Wt 74.5 kg
--- NOTE | ~2018-01-30 | MORECARE ---
CASE MANAGEMENT DISCHARGE SUMMARY PATIENT: SEKOU MCGINNIS UNIT: [id number] ADM DATE: 01/30/18 AGE: 82 : 35 SEX: M ROOM/BED: D.2136 AUTHOR: CORRINA DA SILVA PHYSICIAN: REFERRING PHYSICIAN: KRISTINA GLYNN MD DATE OF SERVICE: 01/30/18 Discharge Plan Patient Name: SEKOU MCGINNIS [facility] [facility] 1935 Planned Disposition: Anticipated Discharge Date: Discharge Date: Expected LOS: Initial Reviewer: [email or web address] Initial Review Date: 01/30/2018 Generated: 01/30/18 5:23 pm DCPIA - Discharge Planning Initial Assessment Updated by [email or web address]: Adriana Mujica on 01/30/18 4:23 pm * Is the patient Alert and Oriented? Yes * PCP PAS[facility] * Preadmission Environment Home Alone * ADLs Independent * Equipment None * List name and contact numbers for known caregivers / representatives who currently or will assist patient after discharge: EDGARD, DAUGHTER, * Community resources currently utilized None * Has this patient been hospitalized within the prior 30 days at any hospital? No Patient Name: SEKOU MCGINNIS Page [id number] at 1623 All edits/amendments must be made on the electronic document DICTATION DATE: 01/30/181622 CHEMICAL LAB SUPERVISOR: DELIA 01/30/18 162 RPT#: [id number] DC DATE: STATUS: ADM IN [facility] [address] [place] [address] END OF REPORT
--- NOTE | ~2018-01-30 | MORECARE ---
CASE MANAGEMENT DISCHARGE SUMMARY PATIENT: SEKOU MCGINNIS UNIT: [id number] ADM DATE: 01/30/18 AGE: 82 : 35 SEX: M ROOM/BED: D.2136 AUTHOR: CORRINA DA SILVA PHYSICIAN: REFERRING PHYSICIAN: KRISTINA GLYNN MD DATE OF SERVICE: 01/30/18 Discharge Plan Patient Name: SEKOU MCGINNIS Facility: [facility]:[place] : 1935 Planned Disposition: Anticipated Discharge Date: Discharge Date: Expected LOS: Initial Reviewer: [email or web address] Initial Review Date: 01/30/2018 Generated: 01/30/18 5:31 pm DCP- Discharge Planning Updated by [email or web address]: Adriana Mujica on 01/30/18 3:[address] Patient Name: SEKOU MCGINNIS Admission Status: ER Accout number: [id number] Admission Date: 01-30-2018 : 1935 Admission Diagnosis: Attending: KRISTINA GLYNN Current LOS: 1 Anticipated DC Date: Planned Disposition: Primary Insurance: MEDICARE A & B Discharge Planning Comments: CM SPOKE WITH PATIENT ABOUT INITIAL DC PLANNING/NEEDS. STATES PLANS TO DC TO HOME WHEN DISCHARGED. STATES NO NEEDS OF RIGHT NOW. CM WILL FOLLOW AND ASSIST NEEDED WITH DC PLANNING/NEEDS. Residence Life Coordinator: Adriana Mujica DCPIA - Discharge Planning Initial Assessment Updated by [id number]: Adriana Mujica on 01/30/18 4:23 pm * Is the patient Alert and Oriented? Yes * PCP * Pharmacy [facility] * Preadmission Environment Home Alone * ADLs Independent * Equipment None * List name and contact numbers for known caregivers / representatives who currently or will assist patient after discharge: EDGARD, DAUGHTER, * Community resources currently utilized None * Has this patient been hospitalized within the prior 30 days at any hospital? No Last DP export: 01/30/18 3:23 Patient Name: SEKOU MCGINNIS Page [id number] at 1631 All edits/amendments must be made on the electronic document DICTATION DATE: 01/30/18 1630 RULES EXAMINER: DELIA 01/30/18 1630 RPT#: [id number] DC DATE: STATUS: ADM IN [facility] [address] [place] [address] END OF REPORT
--- NOTE | ~2018-01-30 | HP ---
PATIENT: SEKOU MCGINNIS MEDICAL RECORD: [id number] ACCOUNT: [id number] LOCATION:[address] : 35 ADMISSION DATE: 01/30/18 PCP: KRISTINA GLYNN MD HISTORY AND PHYSICAL EXAMINATION REASON FOR ADMISSION: Severe abdominal pain and nausea. HISTORY OF PRESENT ILLNESS: An 82-year-old male with history of oeapj-qi-yvdpvgt pancreatitis, last admitted in November of this year. He was seen by Dr. Powers from GI at that time. CT revealed pancreatic head edema and a 1.5-cm cyst. He improved with n.p.o. status, IV fluids, and antibiotics. An MRI was done at that time showing a 1.5-cm cyst in the pancreatic head with no mass effect. He was discharged home on a bland diet, was eating small frequent meals, and doing pretty well except for gradual weight loss. He was seen in the office this week and was feeling pretty well. He went out to eat last night and said he ate some lerma beans with bush bush, and within 2 hours, had severe abdominal pain. It lasted throughout the night and he came to the Emergency Room for this reason. He denies fever, change in stools, or blood per rectum. On last hospitalization, TriCor, Zocor, and Calan were discontinued because of their propensity to exacerbate pancreatitis. His previous CA 19-9 was normal as well. 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 PAST SURGICAL HISTORY: As above. SOCIAL HISTORY: He has been for 5 years. He is a heavy smoker and still smokes. He is a nondrinker for over 50 years, never heavy. FAMILY HISTORY: Unknown as he is adopted. ALLERGIES: None mentioned. HOME MEDICATIONS: Nicoderm patch 21 mg as directed, Xanax 0.25 mg t.i.d. p.r.n. anxiety, PreserVision vitamins one cap p.o. b.i.d., ferrous sulfate 325 mg a day, omeprazole 20 mg a day, verapamil 120 mg p.o. b.i.d., Carafate 1 gram p.o. a.c. and at bedtime, and Pepcid 20 mg b.i.d. REVIEW OF SYSTEMS: GENERAL: Gradual weight loss due to small frequent meals, he states. No fever. HEENT: No recent new visual change, sinus congestion, or sore throat. RESPIRATORY: No SOB or cough. CARDIAC: No chest pain or claudication. GASTROINTESTINAL: As above. Mild nausea after eating last night and then severe abdominal pain. No change in stools or blood per rectum. GENITOURINARY: Nocturia once nightly. ENDOCRINE: Denies polyuria, polydipsia, heat or cold intolerance. NEUROLOGIC: No history of stroke, TIA, or vascular headache. INTEGUMENT: No rash or itching. PSYCHIATRIC: Denies depressed mood, but admits to being concerned that he might have cancer. HISTORY AND PHYSICAL [id number] SEKOU MCGINNIS PHYSICAL EXAMINATION: VITAL SIGNS: His temperature is 97.8 Fahrenheit orally, pulse 91 and regular, respirations 16, blood pressure 133/84 with O2 sat of 95% on room air. GENERAL: The patient is alert and oriented. HEENT: Eyes are clear. Oropharynx unremarkable. Nose shows scar from previous surgery. Throat is clear. Mucous membranes are not dry. NECK: No bruits or masses. CHEST: Distant breath sounds without wheezes or rales. HEART: Regular without murmur. ABDOMEN: Soft and moderately tender in the midepigastrium without rebound. No masses are felt. Active bowel sounds are noted. EXTREMITIES: No CC&E. NEUROLOGIC: Oriented to person, place, and time. Cranial nerves are grossly intact. Gait normal. IMAGING: CT of abdomen and pelvis compared to the MRI of 12/09/2017 showed clear lungs. Normal liver. Gallbladder nondistended. There is distention of intrahepatic and extrahepatic bile ducts with common bile duct measuring 9 mm at the head of the pancreas. There is a gas collection which appears to involve the pancreatic head, 2 cm in size. Edema adjacent to the head and body by the pancreas, extending into the root of the mesentery; with a 4.8-cm abdominal aortic aneurysm, stable. LABORATORY DATA: Lab shows white count of 9700; H&H of 8.9 and 29.9, reflecting his chronic anemia; and MCV of 70.2. Sodium is 134; potassium 4.1; glucose 131, nonfasting; and alk phos is 413. Troponin 0.019. Amylase 219 and lipase 825. ASSESSMENT: Xfdnb-nl-kuibxrd pancreatitis, weight loss, microcytic anemia, history of hypertension, keratoacanthoma, basal cell carcinoma, anxiety, COPD, and nicotine addiction. PLAN: Hold n.p.o. Maintenance IV fluids. GI consultation. TRANSINT:[id number] Voice Confirmation ID: [id number] DOCUMENT ID: [id number] KRISTINA GLYNN MD at 0732 CC: [id number] DICTATION DATE: 01/30/18 174 TEXTILES SALES REPRESENTATIVE: 01/30/18 1819 ADM IN [place] [id number] [place] [id number]
--- NOTE | ~2018-01-30 | MORECARE ---
CASE MANAGEMENT DISCHARGE SUMMARY PATIENT: SEKOU MCGINNIS UNIT: [id number] ADM DATE: 01/30/18 AGE: 82 : 35 SEX: M ROOM/BED: D.2103 AUTHOR: CORRINA DA SILVA PHYSICIAN: REFERRING PHYSICIAN: KRISTINA GLYNN MD DATE OF SERVICE: 02/03/18 Discharge Plan Patient Name: SEKOU MCGINNIS Facility: [facility]:[place] : 1935 Planned Disposition: Home Anticipated Discharge Date: 02/02/18 Discharge Date: 02/02/2018 Expected LOS: 3 Initial Reviewer: [email or web address] Initial Review Date: 01/30/2018 Generated: 02/03/18 9:16 am DCP- Discharge Planning Updated by [email or web address]: Adriana Mujica on 01/30/18 3:[address] Patient Name: SEKOU MCGINNIS Admission Status: ER Accout number: [id number] Admission Date: 01-30-2018 : 1935 Admission Diagnosis: Attending: KRISTINA GLYNN Current LOS: 1 Anticipated DC Date: Planned Disposition: Primary Insurance: MEDICARE A & B Discharge Planning Comments: CM SPOKE WITH PATIENT ABOUT INITIAL DC PLANNING/NEEDS. STATES PLANS TO DC TO HOME WHEN DISCHARGED. STATES NO NEEDS OF RIGHT NOW. CM WILL FOLLOW AND ASSIST NEEDED WITH DC PLANNING/NEEDS. Die Casting Machine Setter: Adriana Mujica DCPIA - Discharge Planning Initial Assessment Updated by [email or web address]: Adriana Mujica on 01/30/18 4:23 pm * Is the patient Alert and Oriented? Yes * PCP * Pharmacy [facility] * Preadmission Environment Home Alone * ADLs Independent * Equipment None * List name and contact numbers for known caregivers / representatives who currently or will assist patient after discharge: EDGARD, DAUGHTER, * Community resources currently utilized None * Has this patient been hospitalized within the prior 30 days at any hospital? No Coverage Notice Reviewer: [id number] - Adriana Mujica Notice Issued Date-Time: 02/02/2018 12:15 Notice Type: IM Discharge Notice Notice Delivered To: Patient Relationship to Patient: Self Scarfing Machine Operator Name: Delivery Method: HAND - Hand Delivered Jing Days: Prior Verbal Notification: Recipient Understood Notice: Yes Recipient Signature: Yes Med Rec Note Co-signed by Attending: Coverage Notice Comment: Last DP export: 02/02/18 11:32 Patient Name: SEKOU MCGINNIS Page [phone] at 0816 All edits/amendments must be made on the electronic document DICTATION DATE: 02/03/18815 WRIST LINER: DELIA 02/03/18815 RPT#: [id number] DC DATE:02/02/18 STATUS: DIS IN [facility] [address] [place] [address] END OF REPORT
--- NOTE | ~2018-01-30 | MORECARE ---
CASE MANAGEMENT DISCHARGE SUMMARY PATIENT: SEKOU MCGINNIS UNIT: [id number] ADM DATE: 01/30/18 AGE: 82 : 35 SEX: M ROOM/BED: D.2103 AUTHOR: CORRINA DA SILVA PHYSICIAN: REFERRING PHYSICIAN: KRISTINA GLYNN MD DATE OF SERVICE: 02/02/18 Discharge Plan Patient Name: SEKOU MCGINNIS Facility: [facility]:[place] : 1935 Planned Disposition: Home Anticipated Discharge Date: 02/02/18 Discharge Date: 02/02/2018 Expected LOS: 3 Initial Reviewer: [id number] Initial Review Date: 01/30/2018 Generated: 02/02/18 1:32 pm DCP- Discharge Planning Updated by [email or web address]: Adriana Mujica on 01/30/18 3:[address] Patient Name: SEKOU MCGINNIS Admission Status: ER Accout number: [id number] Admission Date: 01-30-2018 : 1935 Admission Diagnosis: Attending: KRISTINA GLYNN Current LOS: 1 Anticipated DC Date: Planned Disposition: Primary Insurance: MEDICARE A & B Discharge Planning Comments: CM SPOKE WITH PATIENT ABOUT INITIAL DC PLANNING/NEEDS. STATES PLANS TO DC TO HOME WHEN DISCHARGED. STATES NO NEEDS OF RIGHT NOW. CM WILL FOLLOW AND ASSIST NEEDED WITH DC PLANNING/NEEDS. Business Analytics Intern: Adriana Mujica DCPIA - Discharge Planning Initial Assessment Updated by [email or web address]: Adriana Mujica on 01/30/18 4:23 pm * Is the patient Alert and Oriented? Yes * PCP * Pharmacy [facility] * Preadmission Environment Home Alone * ADLs Independent * Equipment None * List name and contact numbers for known caregivers / representatives who currently or will assist patient after discharge: EDGARD, DAUGHTER, * Community resources currently utilized None * Has this patient been hospitalized within the prior 30 days at any hospital? No Coverage Notice Reviewer: [id number] - Adriana Mujica Notice Issued Date-Time: 02/02/2018 12:15 Notice Type: IM Discharge Notice Notice Delivered To: Patient Relationship to Patient: Self Table Top Tile Setter Name: Delivery Method: HAND - Hand Delivered Jing Days: Prior Verbal Notification: Recipient Understood Notice: Yes Recipient Signature: Yes Med Rec Note Co-signed by Attending: Coverage Notice Comment: Last DP export: 01/30/18 3:31 Patient Name: SEKOU MCGINNIS Page 24085 at 1232 All edits/amendments must be made on the electronic document DICTATION DATE: 02/02/18 1232 PAINT MIXER HAND: DELIA 02/02/18 1232 RPT#: [id number] DC DATE:02/02/18 STATUS: DIS IN [facility] [address] [place] [address] END OF REPORT
[~2018-01-30 11:22] MED LIST changes: +CALAN120 MG PO; +CARAFATE1 G/10 ML PO; +PEPCID PO
[2018-01-30 11:51] LABS: BASOPHILS 0.2 % (0-2); HEMATOCRIT 29.9 % (42.0-54.0); HEMOGLOBIN 8.9 g/dL (13.5-17.5); IMMATURE GRANULOCYTES 0.1 % (0-5); LYMPHOCYTES 8.2 % (15-50); MCH 20.9 pg (26.0-34.0); MCHC 29.8 g/dL (31.0-37.0); MCV 70.2 fL (80.0-100.0); MEAN PLATELET VOLUME 8.7 fL (7.4-10.4); MONOCYTES 8.6 % (2-11); NEUTROPHILS 80.9 % (40-80); RBC 4.26 10x6/uL (4.20-6.10); RDW 17.3 % (11.5-14.5); WBC 9.7 10x3/uL (4.8-10.8)
[2018-01-30 11:59] LABS: ALBUMIN 3.2 g/dL (3.4-5.0); ANION GAP 11.8 mmol/L (8-16); BILIRUBIN - TOTAL 0.21 mg/dL (0.2-1.3); CALCIUM 9.5 mg/dL (8.5-10.1); CARBON DIOXIDE 26.3 mmol/L (21.0-32.0); CREATININE - SERUM 1.1 mg/dL (0.6-1.3); POTASSIUM - SERUM 4.1 mmol/L (3.5-5.1); PROTEIN - SERUM 7.1 g/dL (6.4-8.2)
[2018-01-30 12:03] LABS: TROPONIN-I 0.019 ng/mL (0.000-0.060)
[2018-01-30 12:10] LABS: PLATELET COUNT 365 10x3/uL (130-400)
[2018-01-30 16:49] LABS: APPEARANCE CLEAR (CLEAR); BILIRUBIN NEGATIVE (NEGATIVE); COLOR YELLOW (YELLOW); GLUCOSE NEGATIVE (NEGATIVE); KETONE NEGATIVE (NEGATIVE); NITRITE NEGATIVE (NEGATIVE); PROTEIN TRACE mg/dL (NEGATIVE); UROBILINOGEN NORMAL (NORMAL)
[2018-01-30 17:58] VITALS: BP 158/77; BMI 20.9
[2018-01-30 20:00] VITALS: BP 148/78
[2018-01-31] VITALS: BP 120/70
[2018-01-31 04:00] VITALS: BP 125/72
[2018-01-31 05:56] LABS: BASOPHILS 0.2 % (0-2); EOSINOPHILS 0.8 % (0-7); HEMATOCRIT 25.5 % (42.0-54.0); HEMOGLOBIN 7.6 g/dL (13.5-17.5); IMMATURE GRANULOCYTES 0.2 % (0-5); LYMPHOCYTES 7.7 % (15-50); MCHC 29.8 g/dL (31.0-37.0); MCV 70.4 fL (80.0-100.0); MEAN PLATELET VOLUME 9.2 fL (7.4-10.4); NEUTROPHILS 80.1 % (40-80); PLATELET COUNT 319 10x3/uL (130-400); RBC 3.62 10x6/uL (4.20-6.10); WBC 11.5 10x3/uL (4.8-10.8)
[2018-01-31 06:32] LABS: ALBUMIN 2.6 g/dL (3.4-5.0); ALKALINE PHOSPHATASE 306 U/L (46-116); BILIRUBIN - TOTAL 0.27 mg/dL (0.2-1.3); CALCIUM 8.9 mg/dL (8.5-10.1); CARBON DIOXIDE 24.1 mmol/L (21.0-32.0); CHLORIDE - SERUM 104 mmol/L (98-107); MAGNESIUM - SERUM 1.8 mg/dL (1.8-2.4); PHOSPHOROUS 3.6 mg/dL (2.5-4.9); POTASSIUM - SERUM 4.1 mmol/L (3.5-5.1); PROTEIN - SERUM 6.1 g/dL (6.4-8.2); SODIUM 136 mmol/L (136-145); UREA NITROGEN 15 mg/dL (7-18); eGFR NON AFRICAN AMERICAN 76 mL/min (90-120)
[2018-01-31 06:33] LABS: ALT (SGPT) 23 U/L (10-68); CALC OSMOLALITY 271 mosm/kg (275-300); GLUCOSE 76 mg/dL (74-106)
[2018-01-31 08:05] VITALS: BP 113/73
[2018-01-31 11:52] VITALS: BP 129/70
[2018-01-31 12:55] VITALS: Ht 180.3 cm; Wt 74.5 kg
[2018-01-31 13:00] LABS: LIPASE 1105 U/L (73-393)
[2018-01-31 13:02] LABS: AMYLASE - SERUM 306 U/L (25-115)
[2018-01-31 14:21] VITALS: BP 127/80
[2018-01-31 21:08] VITALS: BP 131/67
[2018-02-01] VITALS (7 sets, daily range): BP systolic 114–148; BP diastolic 55–78
[2018-02-01 06:34] LABS: BASOPHILS 0.2 % (0-2); EOSINOPHILS 1.4 % (0-7); HEMATOCRIT 26.1 % (42.0-54.0); IMMATURE GRANULOCYTES 0.1 % (0-5); LYMPHOCYTES 6.3 % (15-50); MCH 21.9 pg (26.0-34.0); MCHC 30.7 g/dL (31.0-37.0); MCV 71.3 fL (80.0-100.0); PLATELET COUNT 277 10x3/uL (130-400); RBC 3.66 10x6/uL (4.20-6.10); RDW 17.6 % (11.5-14.5); WBC 9.5 10x3/uL (4.8-10.8)
[2018-02-01 07:04] LABS: CALC OSMOLALITY 266 mosm/kg (275-300); CARBON DIOXIDE 23.3 mmol/L (21.0-32.0); CHLORIDE - SERUM 101 mmol/L (98-107); GLUCOSE 74 mg/dL (74-106); LIPASE 658 U/L (73-393); POTASSIUM - SERUM 3.7 mmol/L (3.5-5.1); SODIUM 134 mmol/L (136-145); UREA NITROGEN 12 mg/dL (7-18)
[2018-02-01 07:06] LABS: AMYLASE - SERUM 190 U/L (25-115); CREATININE - SERUM 0.7 mg/dL (0.6-1.3); eGFR NON AFRICAN AMERICAN > 90 mL/min (90-120)
[2018-02-02 03:45] VITALS: BP 144/75
[2018-02-02 05:08] LABS: BASOPHILS 0.1 % (0-2); EOSINOPHILS 2.4 % (0-7); HEMATOCRIT 25.7 % (42.0-54.0); HEMOGLOBIN 7.9 g/dL (13.5-17.5); IMMATURE GRANULOCYTES 0.1 % (0-5); LYMPHOCYTES 7.2 % (15-50); MCH 21.8 pg (26.0-34.0); MCHC 30.7 g/dL (31.0-37.0); MEAN PLATELET VOLUME 9.4 fL (7.4-10.4); MONOCYTES 12.5 % (2-11); NEUTROPHILS 77.7 % (40-80); PLATELET COUNT 264 10x3/uL (130-400); RBC 3.62 10x6/uL (4.20-6.10); RDW 17.6 % (11.5-14.5); WBC 8.8 10x3/uL (4.8-10.8)
[2018-02-02 05:29] LABS: AMYLASE - SERUM 104 U/L (25-115); LIPASE 391 U/L (73-393)
[2018-02-02] MEDS ORDERED: NORCO 10-325 TA1 TAB PO (09:08)
[2018-02-02 10:05] VITALS: BP 142/79
[2018-02-05 05:15] LABS: IGG SUBCLASS 1 438 mg/dL (248-810); IGG SUBCLASS 2 123 mg/dL (130-555); IGG SUBCLASS 3 37 mg/dL (15-102); IGG SUBCLASS 4 54 mg/dL (2-96)
== END 2018-02-02 12:28 | disposition home or self-care (01) | DRG 440 ==
LOC: D.ER 11:22 → D.M2 15:49 → D.EDHOLD 15:49 → D.M2 16:13
PROVIDERS: Family Medicine; Internal Medicine Gastroenterology
DX: K85.90 Acute pancreatitis without necrosis or infection, unspecified (principal); E78.5 Hyperlipidemia, unspecified; J44.9 Chronic obstructive pulmonary disease, unspecified; D50.9 Iron deficiency anemia, unspecified; N40.0 Benign prostatic hyperplasia without lower urinary tract symptoms; B96.81 Helicobacter pylori [H. pylori] as the cause of diseases classified elsewhere; F41.9 Anxiety disorder, unspecified; L85.8 Other specified epidermal thickening; I71.4 Abdominal aortic aneurysm, without rupture

== ENCOUNTER 2018-02-17 12:31 | Emergency (ER) | payer MEDICARE, OTHER ==
[~2018-02-17] VITALS: Ht 180.3 cm; Wt 68.2 kg
[~2018-02-17 12:31] MED LIST changes: +NORCO 10-325 TA1 TAB PO
[2018-02-17 12:38] VITALS: Ht 180.3 cm; Wt 68.2 kg
[2018-02-17 13:56] LABS: BASOPHILS 0.4 % (0-2); EOSINOPHILS 1.5 % (0-7); HEMATOCRIT 30.9 % (42.0-54.0); HEMOGLOBIN 9.2 g/dL (13.5-17.5); LYMPHOCYTES 16.3 % (15-50); MCH 21.7 pg (26.0-34.0); MCHC 29.8 g/dL (31.0-37.0); MEAN PLATELET VOLUME 8.8 fL (7.4-10.4); MONOCYTES 13.2 % (2-11); NEUTROPHILS 68.6 % (40-80); RBC 4.23 10x6/uL (4.20-6.10); RDW 20.8 % (11.5-14.5); WBC 5.2 10x3/uL (4.8-10.8)
[2018-02-17 14:12] LABS: ALKALINE PHOSPHATASE 209 U/L (46-116); ALT (SGPT) 23 U/L (10-68); BILIRUBIN - TOTAL 0.13 mg/dL (0.2-1.3); CALC OSMOLALITY 279 mosm/kg (275-300); CARBON DIOXIDE 29.2 mmol/L (21.0-32.0); CHLORIDE - SERUM 103 mmol/L (98-107); CREATININE - SERUM 1.1 mg/dL (0.6-1.3); GLUCOSE 99 mg/dL (74-106); PLATELET COUNT 446 10x3/uL (130-400); POTASSIUM - SERUM 4.2 mmol/L (3.5-5.1); PROTEIN - SERUM 6.8 g/dL (6.4-8.2); SODIUM 139 mmol/L (136-145); UREA NITROGEN 18 mg/dL (7-18); eGFR NON AFRICAN AMERICAN 68 mL/min (90-120)
[2018-02-17 14:24] LABS: AMYLASE - SERUM 190 U/L (25-115); CKMB 1.5 U/L (0.0-3.6); CREATINE KINASE 26 UL (21-232); LIPASE 720 U/L (73-393); THYROID STIMULATING HORMONE 1.65 uIU/mL (0.36-3.74); TROPONIN-I < 0.017 ng/mL (0.000-0.060)
[2018-02-17 15:21] LABS: APPEARANCE CLEAR (CLEAR); BILIRUBIN NEGATIVE (NEGATIVE); COLOR YELLOW (YELLOW); GLUCOSE NEGATIVE (NEGATIVE); KETONE NEGATIVE (NEGATIVE); NITRITE NEGATIVE (NEGATIVE); PROTEIN TRACE mg/dL (NEGATIVE); SPECIFIC GRAVITY 1.015 (1.005-1.020); UROBILINOGEN NORMAL (NORMAL)
[2018-02-17 18:09] VITALS: BP 164/83
== END 2018-02-17 18:10 | disposition home or self-care (01) ==
LOC: D.ER 12:31
PROVIDERS: Family Medicine
DX: K86.1 Other chronic pancreatitis (principal); D64.9 Anemia, unspecified; I10 Essential (primary) hypertension; F17.200 Nicotine dependence, unspecified, uncomplicated

== ENCOUNTER → 2018-03-25 08:07 | Outpatient (CLI) | payer MEDICARE, OTHER ==
[2018-02-17 12:38] VITALS: BMI 20.9
== END | disposition home or self-care (01) ==
LOC: D.CT 08:07
DX: I71.4 Abdominal aortic aneurysm, without rupture (principal)

== ENCOUNTER 2018-04-23 16:43 | Inpatient (IN) | payer MEDICARE, OTHER ==
[~2018-04-23] VITALS: Ht 180.3 cm; Wt 63.0 kg
[2018-04-23 17:33] LABS: BASOPHILS 0.1 % (0-2); EOSINOPHILS 0.3 % (0-7); HEMOGLOBIN 10.5 g/dL (13.5-17.5); IMMATURE GRANULOCYTES 0.3 % (0-5); LYMPHOCYTES 7.4 % (15-50); MCH 24.1 pg (26.0-34.0); MCHC 31.8 g/dL (31.0-37.0); MCV 75.7 fL (80.0-100.0); MEAN PLATELET VOLUME 9.1 fL (7.4-10.4); MONOCYTES 7.5 % (2-11); NEUTROPHILS 84.4 % (40-80); PLATELET COUNT 528 10x3/uL (130-400); RBC 4.36 10x6/uL (4.20-6.10); RDW 18.8 % (11.5-14.5); WBC 7.2 10x3/uL (4.8-10.8)
[2018-04-23 17:45] LABS: ALBUMIN 3.1 g/dL (3.4-5.0); ALKALINE PHOSPHATASE 130 U/L (46-116); ALT (SGPT) 16 U/L (10-68); APPEARANCE CLEAR (CLEAR); BILIRUBIN NEGATIVE (NEGATIVE); BILIRUBIN - TOTAL 0.17 mg/dL (0.2-1.3); CALC OSMOLALITY 289 mosm/kg (275-300); CALCIUM 9.8 mg/dL (8.5-10.1); CARBON DIOXIDE 33.1 mmol/L (21.0-32.0); CHLORIDE - SERUM 99 mmol/L (98-107); COLOR STRAW (YELLOW); CREATININE - SERUM 1.9 mg/dL (0.6-1.3); GLUCOSE NEGATIVE (NEGATIVE); KETONE NEGATIVE (NEGATIVE); NITRITE NEGATIVE (NEGATIVE); POTASSIUM - SERUM 4.1 mmol/L (3.5-5.1); PROTEIN TRACE mg/dL (NEGATIVE); PROTEIN - SERUM 7.9 g/dL (6.4-8.2); SODIUM 141 mmol/L (136-145); SPECIFIC GRAVITY 1.005 (1.005-1.020); UREA NITROGEN 29 mg/dL (7-18); UROBILINOGEN NORMAL (NORMAL); eGFR NON AFRICAN AMERICAN 36 mL/min (90-120)
[2018-04-23 17:46] LABS: AMORPHOUS SEDIMENT <1+ /lpf (NONE SEEN); BACTERIA MODERATE /hpf (NONE SEEN); EPITHELIAL CELLS 0-5 /hpf (0-5); MUCUS <1+ /lpf (NONE SEEN); RED CELLS - URINE OCC /hpf (0-5); WHITE CELLS - URINE OCC /hpf (0-5)
[2018-04-23 17:47] LABS: AMYLASE - SERUM 153 U/L (25-115); LIPASE 406 U/L (73-393); TROPONIN-I < 0.017 ng/mL (0.000-0.060)
[2018-04-23 17:49] LABS: GLUCOSE 153 mg/dL (74-106)
[2018-04-24 02:19] VITALS: BP 149/91; BMI 19.4
[2018-04-24 04:00] VITALS: BP 143/67
[2018-04-24] MEDS ORDERED: PEPCID AC20 MG PO (06:00)
[2018-04-24 07:03] LABS: BASOPHILS 0.3 % (0-2); EOSINOPHILS 0 % (0-7); HEMATOCRIT 28.4 % (42.0-54.0); HEMOGLOBIN 8.8 g/dL (13.5-17.5); IMMATURE GRANULOCYTES 0.1 % (0-5); LYMPHOCYTES 12.3 % (15-50); MCH 23.8 pg (26.0-34.0); MCV 76.8 fL (80.0-100.0); MEAN PLATELET VOLUME 9.1 fL (7.4-10.4); MONOCYTES 8.8 % (2-11); NEUTROPHILS 78.5 % (40-80); RDW 19.3 % (11.5-14.5); WBC 6.9 10x3/uL (4.8-10.8)
[2018-04-24 07:05] LABS: PLATELET COUNT 401 10x3/uL (130-400)
[2018-04-24 07:22] LABS: ALBUMIN 2.6 g/dL (3.4-5.0); BILIRUBIN - TOTAL 0.25 mg/dL (0.2-1.3); CALCIUM 8.8 mg/dL (8.5-10.1); CARBON DIOXIDE 25.2 mmol/L (21.0-32.0); CREATININE - SERUM 1.5 mg/dL (0.6-1.3)
[2018-04-24 07:23] LABS: ANION GAP 16.8 mmol/L (8-16)
[2018-04-24 08:14] VITALS: BP 129/60
[2018-04-24 09:56] VITALS: BMI 19.3
[2018-04-24 11:52] VITALS: BP 131/64
[2018-04-24 16:07] VITALS: BP 144/72
[2018-04-24 20:00] VITALS: BP 123/69
[2018-04-25 00:10] VITALS: BP 138/67
[2018-04-25 03:58] VITALS: BP 126/69
[2018-04-25 06:37] LABS: BASOPHILS 0.2 % (0-2); EOSINOPHILS 1.3 % (0-7); HEMATOCRIT 24.8 % (42.0-54.0); HEMOGLOBIN 7.7 g/dL (13.5-17.5); IMMATURE GRANULOCYTES 0.2 % (0-5); LYMPHOCYTES 16.4 % (15-50); MCH 24.1 pg (26.0-34.0); MCV 77.5 fL (80.0-100.0); MEAN PLATELET VOLUME 8.8 fL (7.4-10.4); MONOCYTES 11.6 % (2-11); NEUTROPHILS 70.3 % (40-80); PLATELET COUNT 357 10x3/uL (130-400); WBC 5.4 10x3/uL (4.8-10.8)
[2018-04-25 07:02] LABS: ALBUMIN 2.2 g/dL (3.4-5.0); BILIRUBIN - DIRECT 0.07 mg/dL (0.00-0.30); BILIRUBIN - INDIRECT 0.08 mg/dL (0.00-1.00); BILIRUBIN - TOTAL 0.15 mg/dL (0.2-1.3); CALCIUM 8.3 mg/dL (8.5-10.1); CARBON DIOXIDE 22.9 mmol/L (21.0-32.0); CREATININE - SERUM 1.4 mg/dL (0.6-1.3); PROTEIN - SERUM 5.4 g/dL (6.4-8.2)
[2018-04-25 07:05] LABS: ANION GAP 14.3 mmol/L (8-16); POTASSIUM - SERUM 4.2 mmol/L (3.5-5.1)
--- NOTE | 2018-04-25 08:20 | HP ---
PATIENT: SEKOU MCGINNIS MEDICAL RECORD: [id number] ACCOUNT: [id number] LOCATION:[address] : [birth year] ADMISSION DATE: 04/23/18 PCP: KRISTINA GLYNN MD HISTORY AND PHYSICAL EXAMINATION REASON FOR ADMISSION: Abdominal pain and vomiting. HISTORY OF PRESENT ILLNESS: The patient is an 82-year-old male who has had several admissions for qelwn-wu-yencdwb pancreatitis this year. 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 He was ultimately referred by Dr. Powers to Dr. Silva at [facility] gastroenterology division. He was seen there a few weeks ago. Gallbladder ultrasound did show evidence of some sludge, but no stones. With limited diet, the patient had done fairly well and was scheduled for in June EGD, EUS, and ERCP that had been delayed due to a 4.8 cm aortic aneurysm, is being followed by Dr. Rhys Lozano. He has been cleared for those procedures apparently. He states he ate a casserole from [employer] night before last and developed some abdominal pain, intractable vomiting all day yesterday and came to the ED. He did not have significant abdominal pain, however. No fever, had 1 diarrhea stool. With hydration, he feels better this morning. PAST MEDICAL HISTORY: Pancreatic cyst versus mass head of the pancreas; recurrent hvith-ip-lbkjwpu pancreatitis; COPD; history of keratoacanthoma; basal cell carcinoma; BPH; aortic sclerosis; negative stress test in 2016; 4.8 cm abdominal aortic aneurysm, being followed by Dr. Lozano; osteoarthritis; anemia. PAST SURGICAL HISTORY: As above. SOCIAL HISTORY: He has been for 5 years, continues to smoke heavily, nondrinker for over 50 years, never heavy. FAMILY HISTORY: Unknown as he was adopted. ALLERGIES: None known. HOME MEDICATIONS: Verapamil 120 mg p.o. b.i.d., Xanax 0.25 t.i.d. p.r.n. anxiety, famotidine 20 mg p.o. b.i.d., PreserVision AREDS 1 cap p.o. b.i.d., [place] 10/325 one q.8 hours p.r.n. severe abdominal pain. REVIEW OF SYSTEMS: GENERAL: Denies fatigue or fever, just vomiting. HEENT: No recent new visual change, sinus congestion, or sore throat. Has trouble with hearing. RESPIRATORY: He has chronic jfcl-jt-crxdmv sputum production in the mornings, no worse than previous. He denies increased shortness of breath. No chest pain. CARDIAC: No chest pain or claudication. GASTROINTESTINAL: Nausea with intractable vomiting for the last 24 hours one loose stool. No severe abdominal pain. GENITOURINARY: Nocturia once nightly. ENDOCRINE: Denies polyuria, polydipsia, heat or cold intolerance. NEUROLOGIC: No history of stroke, TIA, or vascular headaches or seizures. INTEGUMENT: No new skin lesions, rash, or itching. PHYSICAL EXAMINATION: HISTORY AND PHYSICAL [id number] SEKOU MCGINNIS VITAL SIGNS: Temperature 98.2, tympanic, Fahrenheit; respirations are 16; blood pressure 157/77; sats 95% on room air. HEENT: Normocephalic. Eyes are clear with early cataracts. Oropharynx unremarkable. NECK: Supple, without bruits or masses. CHEST: He has distant breath sounds without wheeze or rales bilaterally. No E-to-A change or crackles noted. CARDIOVASCULAR: Regular rate and rhythm. ABDOMEN: Soft, nontender in the epigastrium. No rebound. Bowel sounds are active. He has a palpable midline abdominal aortic aneurysm with bruit noted. He has good femoral pulses. GENITOURINARY: Deferred. EXTREMITIES: No CC&E. NEUROLOGICAL: Oriented to person, place, and time. Cranial nerves intact. Gait normal. LABORATORY DATA: White count 7200, H&H of 10.5 and 33.0, platelet count 528,000. Chemistry: BUN and creatinine were 29 and 1.9. Liver functions are normal. Alkaline phosphatase of 130, amylase of 153, lipase of 406. UA, trace protein. Moderate bacteria. CTA was from March 25 of this year was reviewed. ASSESSMENT: 1. Ldwzm-hy-baaxhia pancreatitis. 2. Intractable vomiting with acute renal insufficiency. 3. History of anemia, clinically stable. 4. Pancreatic cyst versus mass, undergoing workup at [facility]. 5. COPD. PLAN: The patient was started on antibiotics by the ED physician for presumed pneumonia. The patient clinically does not have pneumonia, but there is a question on chest x-ray. We will continue antibiotics today and repeat x-ray tomorrow. Hydrate. Clear liquids as tolerated. TRANSINT:[id number] Voice Confirmation ID: [id number] DOCUMENT ID: [id number] KRISTINA GLYNN MD at 0820 CC: [id number] DICTATION DATE: 04/24/18756 SHADE HANGER: 04/24/18 0943 ADM IN [facility] [address] [place] [id number]
[2018-04-25 08:23] VITALS: BP 145/67
[2018-04-25 10:32] VITALS: Ht 180.3 cm; Wt 63.0 kg
[2018-04-25 10:54] LABS: % SATURATION 6 % (15-55); IRON 12 ug/dl (35-150); TOTAL IRON BIND CAPACITY 191 ug/dl (260-445); UNSAT IRON BIND CAPACITY 179 ug/dl (150-375)
[2018-04-25 13:17] VITALS: BP 136/66
--- NOTE | 2018-04-25 14:54 | MORECARE ---
CASE MANAGEMENT DISCHARGE SUMMARY PATIENT: SEKOU MCGINNIS UNIT: [id number] ADM DATE: 04/23/18 AGE: 82 : 35 SEX: M ROOM/BED: D.1212 AUTHOR: CORRINA DA SILVA PHYSICIAN: REFERRING PHYSICIAN: HOLLEY RESENDIZ MD DATE OF SERVICE: 04/25/18 Discharge Plan Patient Name: SEKOU MCGINNIS Facility: [facility]:[place] : 1935 Planned Disposition: Anticipated Discharge Date: Discharge Date: Expected LOS: Initial Reviewer: [id number] Initial Review Date: 04/25/2018 Generated: 04/25/18 3:54 pm Comments DCP- Discharge Planning Updated by [email or web address]: Adriana Mujica on 04/25/18 1:[address] Patient Name: SEKOU MCGINNIS Admission Status: ER Accout number: [id number] Admission Date: 04-23-2018 : 1935 Admission Diagnosis: Attending: HOLLEY RESENDIZ Current LOS: 2 Anticipated DC Date: Planned Disposition: Primary Insurance: MEDICARE A & B Discharge Planning Comments: CM MET WITH PATIENT ABOUT DC PLANNING/NEEDS. STATES NEEDS HELP AT HOME WHEN DC'D. WENDI GIVEN AND SIGNED FOR CLYDE ERAZO. PATIENT STATES NEEDS INFORMATION ON WHAT TO EAT WHEN YOU HAVE PANCREATITIS. LIVES ALONE BUT HAS FAMILY THAT LIVES IN THIS COUNTY. CM WILL FOLLOW AND ASSIST NEEDED WITH DC PLANNING/NEEDS. Science Editor: Adriana Mujica DCPIA - Discharge Planning Initial Assessment Updated by [id number]: Adriana Mujica on 04/25/18 2:49 pm * Is the patient Alert and Oriented? Yes * PCP CITIZ[place] * Pharmacy [facility] * Preadmission Environment Home Alone * ADLs Independent * Equipment Oxygen * List name and contact numbers for known caregivers / representatives who currently or will assist patient after discharge: EDGARD, DAUGHTER, * Community resources currently utilized None * Additional services required to return to the preadmission environment? Yes * Can the patient safely return to the preadmission environment? Yes * Has this patient been hospitalized within the prior 30 days at any hospital? No Coverage Notice Reviewer: [id number] - Adriana Mujica Notice Issued Date-Time: 04/25/2018 14:52 Notice Type: Patient Choice Letter Notice Delivered To: Patient Relationship to Patient: Self Slasher Runner Name: Delivery Method: HAND - Hand Delivered Jing Days: Prior Verbal Notification: Recipient Understood Notice: Yes Recipient Signature: Yes Med Rec Note Co-signed by Attending: Coverage Notice Comment: KACEY TANG Patient Name: SEKOU MCGINNIS Page [id number] at 1454 All edits/amendments must be made on the electronic document DICTATION DATE: 04/25/181453 HERPETOLOGIST: DELIA 04/25/184 RPT#: [id number] DC DATE: STATUS: ADM IN [facility] [address] [place] [address] END OF REPORT
[2018-04-25 16:54] VITALS: BP 132/58
[2018-04-25 20:10] VITALS: BP 153/72
[2018-04-26] VITALS (7 sets, daily range): BP systolic 139–172; BP diastolic 64–75
[2018-04-26 06:48] LABS: BASOPHILS 0.4 % (0-2); EOSINOPHILS 2.4 % (0-7); HEMATOCRIT 25.1 % (42.0-54.0); HEMOGLOBIN 7.6 g/dL (13.5-17.5); IMMATURE GRANULOCYTES 0.2 % (0-5); LYMPHOCYTES 14.8 % (15-50); MCH 23.3 pg (26.0-34.0); MCHC 30.3 g/dL (31.0-37.0); MEAN PLATELET VOLUME 8.6 fL (7.4-10.4); MONOCYTES 11.1 % (2-11); NEUTROPHILS 71.1 % (40-80); PLATELET COUNT 347 10x3/uL (130-400); RBC 3.26 10x6/uL (4.20-6.10); RDW 18.6 % (11.5-14.5); WBC 4.5 10x3/uL (4.8-10.8)
[2018-04-26 07:14] LABS: ANION GAP 11.4 mmol/L (8-16); CALCIUM 8.4 mg/dL (8.5-10.1); CARBON DIOXIDE 23.5 mmol/L (21.0-32.0); CREATININE - SERUM 1.4 mg/dL (0.6-1.3); POTASSIUM - SERUM 3.9 mmol/L (3.5-5.1)
[2018-04-27 04:00] VITALS: BP 139/67
[2018-04-27 08:08] LABS: BASOPHILS 0.2 % (0-2); EOSINOPHILS 1.8 % (0-7); IMMATURE GRANULOCYTES 0.4 % (0-5); LYMPHOCYTES 14.2 % (15-50); MCHC 32.1 g/dL (31.0-37.0); MCV 77.8 fL (80.0-100.0); MEAN PLATELET VOLUME 8.6 fL (7.4-10.4); MONOCYTES 10.5 % (2-11); NEUTROPHILS 72.9 % (40-80); PLATELET COUNT 333 10x3/uL (130-400); RDW 17.9 % (11.5-14.5); WBC 5.6 10x3/uL (4.8-10.8)
[2018-04-27 08:09] LABS: HEMOGLOBIN 10.6 g/dL (13.5-17.5); RBC 4.24 10x6/uL (4.20-6.10)
[2018-04-27 08:14] LABS: CALCIUM 8.5 mg/dL (8.5-10.1); CARBON DIOXIDE 22.7 mmol/L (21.0-32.0); CREATININE - SERUM 1.5 mg/dL (0.6-1.3); POTASSIUM - SERUM 3.7 mmol/L (3.5-5.1)
[2018-04-27 08:31] VITALS: BP 141/70
[2018-04-27 12:25] VITALS: BP 156/90
[2018-04-27 16:00] VITALS: BP 159/78
[2018-04-27 19:55] VITALS: BP 156/79
[2018-04-27 23:41] VITALS: BP 152/86
[2018-04-28 03:46] VITALS: BP 150/70
[2018-04-28 07:56] VITALS: BP 132/71
[2018-04-28 12:52] VITALS: BP 138/73
[2018-04-28] MEDS ORDERED: LEVAQUIN750 MG PO (13:02)
[2018-04-28] MEDS ORDERED: ZITHROMAX250 MG PO (13:03)
--- NOTE | 2018-04-28 15:23 | MORECARE ---
CASE MANAGEMENT DISCHARGE SUMMARY PATIENT: SEKOU MCGINNIS UNIT: [id number] ADM DATE: 04/23/18 AGE: 82 : 35 SEX: M ROOM/BED: D.1212 AUTHOR: CORRINA DA SILVA PHYSICIAN: REFERRING PHYSICIAN: HOLLEY RESENDIZ MD DATE OF SERVICE: 04/28/18 Discharge Plan Patient Name: SEKOU MCGINNIS Facility: [facility]:[place] : 1935 Planned Disposition: Home Anticipated Discharge Date: 04/28/18 Discharge Date: Expected LOS: 5 Initial Reviewer: [id number] Initial Review Date: 04/25/2018 Generated: 04/28/18 4:23 pm Comments DCP- Discharge Planning Updated by [id number]: Adriana Mujica on 04/25/18 1:[address] Patient Name: SEKOU MCGINNIS Admission Status: ER Accout number: [id number] Admission Date: 04-23-2018 : 1935 Admission Diagnosis: Attending: HOLLEY RESENDIZ Current LOS: 2 Anticipated DC Date: Planned Disposition: Primary Insurance: MEDICARE A & B Discharge Planning Comments: CM MET WITH PATIENT ABOUT DC PLANNING/NEEDS. STATES NEEDS HELP AT HOME WHEN DC'D. WENDI GIVEN AND SIGNED FOR CLYDE ERAZO. PATIENT STATES NEEDS INFORMATION ON WHAT TO EAT WHEN YOU HAVE PANCREATITIS. LIVES ALONE BUT HAS FAMILY THAT LIVES IN THIS COUNTY. CM WILL FOLLOW AND ASSIST NEEDED WITH DC PLANNING/NEEDS. Reservoir Engineering Manager: Adriana Mujica DCPIA - Discharge Planning Initial Assessment Updated by [email or web address]: Adriana Mujica on 04/25/18 2:49 pm * Is the patient Alert and Oriented? Yes * PCP [place] * Pharmacy [facility] * Preadmission Environment Home Alone * ADLs Independent * Equipment Oxygen * List name and contact numbers for known caregivers / representatives who currently or will assist patient after discharge: EDGARD, DAUGHTER, * Community resources currently utilized None * Additional services required to return to the preadmission environment? Yes * Can the patient safely return to the preadmission environment? Yes * Has this patient been hospitalized within the prior 30 days at any hospital? No Coverage Notice Reviewer: [id number] - Adriana Mujica Notice Issued Date-Time: 04/25/2018 14:52 Notice Type: Patient Choice Letter Notice Delivered To: Patient Relationship to Patient: Self Casting Trucker Name: Delivery Method: HAND - Hand Delivered Jing Days: Prior Verbal Notification: Recipient Understood Notice: Yes Recipient Signature: Yes Med Rec Note Co-signed by Attending: Coverage Notice Comment: KACEY TANG Reviewer: [id number] Imani Mujica Notice Issued Date-Time: 04/28/2018 15:14 Notice Type: IM Discharge Notice Notice Delivered To: Patient Relationship to Patient: Self Casting Trucker Name: Delivery Method: HAND - Hand Delivered Jing Days: Prior Verbal Notification: Recipient Understood Notice: Yes Recipient Signature: Yes Med Rec Note Co-signed by Attending: Coverage Notice Comment: Last DP export: 04/25/18 1:54 pm Patient Name: SEKOU MCGINNIS Page [id number] at 1523 All edits/amendments must be made on the electronic document DICTATION DATE: 04/28/18 152 WINDOW FRAMER: DELIA 04/28/18 1523 RPT#: [id number] DC DATE: STATUS: ADM IN [facility] [address] [place] [address] END OF REPORT
--- NOTE | 2018-04-29 14:39 | MORECARE ---
CASE MANAGEMENT DISCHARGE SUMMARY PATIENT: SEKOU MCGINNIS UNIT: [id number] ADM DATE: 04/23/18 AGE: 82 : 35 SEX: M ROOM/BED: D.1212 AUTHOR: CORRINA DA SILVA PHYSICIAN: REFERRING PHYSICIAN: HOLLEY RESENDIZ MD DATE OF SERVICE: 04/29/18 Discharge Plan Patient Name: SEKOU MCGINNIS Facility: [facility]:[place] : 1935 Planned Disposition: Home Anticipated Discharge Date: 04/28/18 Discharge Date: 04/28/2018 Expected LOS: 5 Initial Reviewer: [email or web address] Initial Review Date: 04/25/2018 Generated: 04/29/18 3:39 pm Comments DCP- Discharge Planning Updated by [id number]: Adriana Mujica on 04/25/18 1:[address] Patient Name: SEKOU MCGINNIS Admission Status: ER Accout number: [id number] Admission Date: 04-23-2018 : 1935 Admission Diagnosis: Attending: HOLLEY RESENDIZ Current LOS: 2 Anticipated DC Date: Planned Disposition: Primary Insurance: MEDICARE A & B Discharge Planning Comments: CM MET WITH PATIENT ABOUT DC PLANNING/NEEDS. STATES NEEDS HELP AT HOME WHEN DC'D. WENDI GIVEN AND SIGNED FOR CLYDE ERAZO. PATIENT STATES NEEDS INFORMATION ON WHAT TO EAT WHEN YOU HAVE PANCREATITIS. LIVES ALONE BUT HAS FAMILY THAT LIVES IN THIS COUNTY. CM WILL FOLLOW AND ASSIST NEEDED WITH DC PLANNING/NEEDS. Venture Capitalist: Adriana Mujica DCPIA - Discharge Planning Initial Assessment Updated by [email or web address]: Adriana Mujica on 04/25/18 2:49 pm * Is the patient Alert and Oriented? Yes * PCP [place] * Pharmacy [facility] * Preadmission Environment Home Alone * ADLs Independent * Equipment Oxygen * List name and contact numbers for known caregivers / representatives who currently or will assist patient after discharge: EDGARD, DAUGHTER, * Community resources currently utilized None * Additional services required to return to the preadmission environment? Yes * Can the patient safely return to the preadmission environment? Yes * Has this patient been hospitalized within the prior 30 days at any hospital? No Coverage Notice Reviewer: [id number] - Adriana Mujica Notice Issued Date-Time: 04/25/2018 14:52 Notice Type: Patient Choice Letter Notice Delivered To: Patient Relationship to Patient: Self Hat Blocking Machine Operator Name: Delivery Method: HAND - Hand Delivered Jing Days: Prior Verbal Notification: Recipient Understood Notice: Yes Recipient Signature: Yes Med Rec Note Co-signed by Attending: Coverage Notice Comment: KACEY TANG Reviewer: [id number] Imani Mujica Notice Issued Date-Time: 04/28/2018 15:14 Notice Type: IM Discharge Notice Notice Delivered To: Patient Relationship to Patient: Self Hat Blocking Machine Operator Name: Delivery Method: HAND - Hand Delivered Jing Days: Prior Verbal Notification: Recipient Understood Notice: Yes Recipient Signature: Yes Med Rec Note Co-signed by Attending: Coverage Notice Comment: Last DP export: 04/28/18 2:23 p Patient Name: SEKOU MCGINNIS Page 20794 at 1439 All edits/amendments must be made on the electronic document DICTATION DATE: 04/29/189 DRAPERY INSTALLER: DELIA 04/29/18 1439 RPT#: [id number] DC DATE:04/28/18 STATUS: DIS IN [facility] [address] [place] [address] END OF REPORT
--- NOTE | 2018-05-07 14:49 | MORECARE ---
CASE MANAGEMENT DISCHARGE SUMMARY PATIENT: SEKOU MCGINNIS UNIT: [id number] ADM DATE: 04/23/18 AGE: 82 : 35 SEX: M ROOM/BED: D.1212 AUTHOR: CORRINA DA SILVA PHYSICIAN: REFERRING PHYSICIAN: HOLLEY RESENDIZ MD DATE OF SERVICE: 05/07/18 Discharge Plan Patient Name: SEKOU MCGINNIS Facility: [facility]:[place] : 1935 Planned Disposition: Home Anticipated Discharge Date: 04/28/18 Discharge Date: 04/28/2018 Expected LOS: 5 Initial Reviewer: [id number] Initial Review Date: 04/25/2018 Generated: 05/07/18 3:49 pm Comments DCP- Discharge Planning Updated by [email or web address]: Charity Tomlinson on 05/07/18 1:[address] CM noted MD's request to transfer patient to [facility]. CM met with patient to discuss MD's recommendation for transfer to [facility]. Patient is in agreement with transfer to [facility]. CM called [facility], spoke with Shireen from the physician call center and notified her of request for transfer. CM received call back from Modesta DCP- Discharge Planning Updated by [id number]: Adriana Mujica on 04/25/18 1:[address] Patient Name: SEKOU MCGINNIS Admission Status: ER Accout number: [id number] Admission Date: 04-23-2018 : 1935 Admission Diagnosis: Attending: HOLLEY RESENDIZ Current LOS: 2 Anticipated DC Date: Planned Disposition: Primary Insurance: MEDICARE A & B Discharge Planning Comments: CM MET WITH PATIENT ABOUT DC PLANNING/NEEDS. STATES NEEDS HELP AT HOME WHEN DC'D. WENDI GIVEN AND SIGNED FOR [facility] THEN [facility]. PATIENT STATES NEEDS INFORMATION ON WHAT TO EAT WHEN YOU HAVE PANCREATITIS. LIVES ALONE BUT HAS FAMILY THAT LIVES IN THIS COUNTY. CM WILL FOLLOW AND ASSIST NEEDED WITH DC PLANNING/NEEDS. Fire Eater: Adriana Mujica DCPIA - Discharge Planning Initial Assessment Updated by [email or web address]: Adriana Mujica on 04/25/18 2:49 pm * Is the patient Alert and Oriented? Yes * PCP CITIZEN OF [place] * Pharmacy [facility] * Preadmission Environment Home Alone * ADLs Independent * Equipment Oxygen * List name and contact numbers for known caregivers / representatives who currently or will assist patient after discharge: LANDON RENE, * Community resources currently utilized None * Additional services required to return to the preadmission environment? Yes * Can the patient safely return to the preadmission environment? Yes * Has this patient been hospitalized within the prior 30 days at any hospital? No Coverage Notice Reviewer: [id number] Mujica Notice Issued Date-Time: 04/25/2018 14:52 Notice Type: Patient Choice Letter Notice Delivered To: Patient Relationship to Patient: Self Forensic Accountant Name: Delivery Method: HAND - Hand Delivered Jing Days: Prior Verbal Notification: Recipient Understood Notice: Yes Recipient Signature: Yes Med Rec Note Co-signed by Attending: Coverage Notice Comment: KACEY TANG Reviewer: [id number] Imani Mujica Notice Issued Date-Time: 04/28/2018 15:14 Notice Type: IM Discharge Notice Notice Delivered To: Patient Relationship to Patient: Self Forensic Accountant Name: Delivery Method: HAND - Hand Delivered Jing Days: Prior Verbal Notification: Recipient Understood Notice: Yes Recipient Signature: Yes Med Rec Note Co-signed by Attending: Coverage Notice Comment: Last DP export: 04/29/18 1:39 p Patient Name: SEKOU MCGINNIS Page [id number] at 1449 All edits/amendments must be made on the electronic document DICTATION DATE: 05/07/181447 CONSUMER ADVOCATE: DELIA 05/07/18 1448 RPT#: [id number] DC DATE:04/28/18 STATUS: DIS IN [facility] [address] [place] [address] END OF REPORT
--- NOTE | 2018-05-07 14:59 | MORECARE ---
CASE MANAGEMENT DISCHARGE SUMMARY PATIENT: SEKOU MCGINNIS UNIT: [id number] ADM DATE: 04/23/18 AGE: 82 : 35 SEX: M ROOM/BED: D.1212 AUTHOR: CORRINA DA SILVA PHYSICIAN: REFERRING PHYSICIAN: HOLLEY RESENDIZ MD DATE OF SERVICE: 05/07/18 Discharge Plan Patient Name: SEKOU MCGINNIS Facility: [facility]:[place] : 1935 Planned Disposition: Home Anticipated Discharge Date: 04/28/18 Discharge Date: 04/28/2018 Expected LOS: 5 Initial Reviewer: [id number] Initial Review Date: 04/25/2018 Generated: 05/07/18 3:58 pm Comments DCP- Discharge Planning Updated by [email or web address]: Charity Tomlinson on 05/07/18 1:[address] CM noted MD's request to transfer patient to [facility]. CM met with patient to discuss MD's recommendation for transfer to [facility]. Patient is in agreement with transfer to [facility]. CM called [facility], spoke with Shireen from the physician call center and notified her of request for transfer. CM received call back from Modesta with [facility] physician call center. Faxed face sheet as requested. Awaiting determination. DCP- Discharge Planning Updated by [email or web address]: Adriana Mujica on 04/25/18 1:[address] Patient Name: SEKOU MCGINNIS Admission Status: ER Accout number: [id number] Admission Date: 04-23-2018 : 1935 Admission Diagnosis: Attending: HOLLEY RESENDIZ Current LOS: 2 Anticipated DC Date: Planned Disposition: Primary Insurance: MEDICARE A & B Discharge Planning Comments: CM MET WITH PATIENT ABOUT DC PLANNING/NEEDS. STATES NEEDS HELP AT HOME WHEN DC'D. WNEDI GIVEN AND SIGNED FOR [facility]. PATIENT STATES NEEDS INFORMATION ON WHAT TO EAT WHEN YOU HAVE PANCREATITIS. LIVES ALONE BUT HAS FAMILY THAT LIVES IN THIS COUNTY. CM WILL FOLLOW AND ASSIST NEEDED WITH DC PLANNING/NEEDS. Computer Education Professor: Adriana Mujica DCPIA - Discharge Planning Initial Assessment Updated by [email or web address]: Adriana Mujica on 04/25/18 2:49 pm * Is the patient Alert and Oriented? Yes * PCP [facility] * Pharmacy [facility] * Preadmission Environment Home Alone * ADLs Independent * Equipment Oxygen * List name and contact numbers for known caregivers / representatives who currently or will assist patient after discharge: LANDON RENE, * Community resources currently utilized None * Additional services required to return to the preadmission environment? Yes * Can the patient safely return to the preadmission environment? Yes * Has this patient been hospitalized within the prior 30 days at any hospital? No External Providers External Provider: OTHER-OTHER Next Contact Date: Service Request Date: Service Type: Resolution: Reviewer: Comments: Coverage Notice Reviewer: [id number] Imani Mujica Notice Issued Date-Time: 04/25/2018 14:52 Notice Type: Patient Choice Letter Notice Delivered To: Patient Relationship to Patient: Self Dental Equipment Technician Name: Delivery Method: HAND - Hand Delivered Jing Days: Prior Verbal Notification: Recipient Understood Notice: Yes Recipient Signature: Yes Med Rec Note Co-signed by Attending: Coverage Notice Comment: KACEY TANG Reviewer: [id number] Imani Mujica Notice Issued Date-Time: 04/28/2018 15:14 Notice Type: IM Discharge Notice Notice Delivered To: Patient Relationship to Patient: Self Dental Equipment Technician Name: Delivery Method: HAND - Hand Delivered Jing Days: Prior Verbal Notification: Recipient Understood Notice: Yes Recipient Signature: Yes Med Rec Note Co-signed by Attending: Coverage Notice Comment: Last DP export: 05/07/18 1:49 p Patient Name: SEKOU MCGINNIS Page [id number] at 1459 All edits/amendments must be made on the electronic document DICTATION DATE: 05/07/181457 SEWING MACHINE MECHANIC: DELIA 05/07/18 1458 RPT#: [id number] DC DATE:04/28/18 STATUS: DIS IN [facility] [address] [place] [address] END OF REPORT
== END 2018-04-28 15:15 | disposition home or self-care (01) | DRG 438 ==
LOC: D.ER 16:43 → D.EDHOLD 23:30 → D.M3 23:30
PROVIDERS: Emergency Medicine; Family Medicine; Internal Medicine Hematology & Oncology; ADMIT Family Medicine
DX: K85.90 Acute pancreatitis without necrosis or infection, unspecified (principal); J18.1 Lobar pneumonia, unspecified organism; J44.0 Chronic obstructive pulmonary disease with (acute) lower respiratory infection; K86.2 Cyst of pancreas; N28.9 Disorder of kidney and ureter, unspecified; I10 Essential (primary) hypertension; D50.9 Iron deficiency anemia, unspecified; K86.9 Disease of pancreas, unspecified; Z72.0 Tobacco use

== ENCOUNTER 2018-05-06 07:55 | Inpatient (IN) | payer MEDICARE, OTHER ==
[~2018-05-06] VITALS: Ht 180.3 cm; Wt 65.8 kg
[~2018-05-06 07:55] MED LIST changes: +LEVAQUIN750 MG PO; +PEPCID AC20 MG PO; +ZITHROMAX250 MG PO
[2018-05-06 08:34] LABS: BASOPHILS 0.2 % (0-2); EOSINOPHILS 0.3 % (0-7); HEMATOCRIT 35.2 % (42.0-54.0); HEMOGLOBIN 11.1 g/dL (13.5-17.5); IMMATURE GRANULOCYTES 0.2 % (0-5); LYMPHOCYTES 8.5 % (15-50); MCHC 31.5 g/dL (31.0-37.0); MCV 79.3 fL (80.0-100.0); MEAN PLATELET VOLUME 9.3 fL (7.4-10.4); MONOCYTES 7.9 % (2-11); NEUTROPHILS 82.9 % (40-80); RBC 4.44 10x6/uL (4.20-6.10); WBC 10.4 10x3/uL (4.8-10.8)
[2018-05-06 08:35] LABS: PLATELET COUNT 428 10x3/uL (130-400)
--- NOTE | 2018-05-06 08:35 | NUR ---
PT GIVEN SPECIMEN CUP AND ASKED TO PROVIDE URINE SAMPLE DESIRE.
[2018-05-06 08:44] LABS: ALBUMIN 3.4 g/dL (3.4-5.0); ALKALINE PHOSPHATASE 285 U/L (46-116); ALT (SGPT) 51 U/L (10-68); AMYLASE - SERUM 178 U/L (25-115); BILIRUBIN - TOTAL 0.36 mg/dL (0.2-1.3); CALC OSMOLALITY 288 mosm/kg (275-300); CALCIUM 9.9 mg/dL (8.5-10.1); CARBON DIOXIDE 27.9 mmol/L (21.0-32.0); CHLORIDE - SERUM 101 mmol/L (98-107); GLUCOSE 119 mg/dL (74-106); LIPASE 439 U/L (73-393); POTASSIUM - SERUM 4.4 mmol/L (3.5-5.1); PROTEIN - SERUM 7.5 g/dL (6.4-8.2); SODIUM 141 mmol/L (136-145); TROPONIN-I < 0.017 ng/mL (0.000-0.060); UREA NITROGEN 32 mg/dL (7-18); eGFR NON AFRICAN AMERICAN 34 mL/min (90-120)
--- NOTE | 2018-05-06 09:51 | NUR ---
BLANKETS PROVIDED AND LIGHTS DIMMED FOR COMFORT. URINE SAMPLE SENT TO THE LAB AT THIS TIME. CALL LIGHT IN REACH. ICE CHIPS GIVEN PER PT REQUEST. PT DENIES ANY OTHER NEEDS AT THIS TIME. WILL CONTINUE TO MONITOR.
[2018-05-06 11:22] LABS: APPEARANCE HAZY (CLEAR); BILIRUBIN NEGATIVE (NEGATIVE); COLOR YELLOW (YELLOW); EPITHELIAL CELLS 0-5 /hpf (0-5); GLUCOSE NEGATIVE (NEGATIVE); KETONE SMALL mg/dL (NEGATIVE); NITRITE NEGATIVE (NEGATIVE); PROTEIN 2+ mg/dL (NEGATIVE); RED CELLS - URINE 0-5 /hpf (0-5); UROBILINOGEN NORMAL (NORMAL); WHITE CELLS - URINE 0-5 /hpf (0-5)
[2018-05-06 11:23] LABS: AMORPHOUS SEDIMENT <1+ /lpf (NONE SEEN); BACTERIA MODERATE /hpf (NONE SEEN); MUCUS <1+ /lpf (NONE SEEN)
--- NOTE | 2018-05-06 11:32 | NUR ---
PT NOTIFIED OF ORDERED NPO STATUS AT 1125. PT THEN ASKED FOR "SIPS OF WATER." NURSE THEN RE-EXPLAINED THE MEANING OF NPO AND PT VOICED UNDERSTANDING. IV INFUSING ORDERED WITH NO SIGNS OF INFILTRATION.
[2018-05-06 11:57] VITALS: BMI 20.2
--- NOTE | 2018-05-06 12:38 | NUR ---
PT MOVED FROM ED ROOM E10 TO ROOM E5. HAND-OFF REPORT GIVEN TO NURSE SELENA. CALL LIGHT IN REACH.
--- NOTE | 2018-05-06 13:32 | NUR ---
ORDERED LR BOLUS COMPLETE AT 1301
--- NOTE | 2018-05-06 13:56 | NUR ---
ROUNDING ON THE PATIENT. HE IS RESTING SUPINE WITH THE LIGHTS OFF. PATIENT IS STILL FULLY DRESSED AND DECLINED AGAIN AT THIS TIME TO CHANGE INTO A HOSPITAL GOWN. PATIENT DENIES PAIN, NO S/S OF SOB/DISTRESS NOTED. ON ROOM AIR AT THIS TIME
--- NOTE | 2018-05-06 16:30 | NUR ---
RECEIVED PT TO ROOM 1206, PT REQUESTING A NICOTINE PATCH. ORIENTED PT TO ROOM AND CALL LIGHT. WILL ASSESS PT AND START PLAN OF CARE.
[2018-05-06 16:34] VITALS: BP 169/85
--- NOTE | 2018-05-06 16:37 | NUR ---
SPOKE WITH LIZ WITH DR. GLYNN, INFORMED HER THAT PT IS REQUESTING A NICOTINE PATCH. NEW ORDER FOR NICOTINE PATCH 21MG STRENGTH.
--- NOTE | 2018-05-06 17:18 | NUR ---
PAGED DR. EPTERSON, WAITING SENIOR DIRECTOR MARKETING BACK.
--- NOTE | 2018-05-06 19:11 | NUR ---
PATIENT SITTING ON THE SIDE OF THE BED WITH NO S/S OF DISTRESS. PATIENT DENIES NEEDS AT THIS TIME. BED IN LOWSET POSITION AND CALL LIGHT WITHIN REACH. ENCOURAGED THE PATIENT TO CALL IF HE HAS NEEDS. WILL CONTINUE TO MONITOR.
[2018-05-06 20:00] VITALS: BP 153/81
--- NOTE | 2018-05-06 20:28 | NUR ---
CALLED PHARMACY FOR PATIENT'S MEDICATIONS
--- NOTE | 2018-05-06 21:40 | NUR ---
PATIENT RESTING IN BED WITH NO S/S OF DISTRESS. ADMINISTERED MEDS PER ORDERS. PATIENT DENIES NEEDS AT THIS TIME. BED IN LOWEST POSITION AND CALL LIGHT WITHIN REACH. ENCOURAGED THE PATIENT TO CALL IF HE HAS NEEDS. WILL CONTINUE TO MONITOR.
[2018-05-07] VITALS: BP 159/82
[2018-05-07 04:00] VITALS: BP 138/71
--- NOTE | 2018-05-07 07:12 | HP ---
PATIENT: SEKOU MCGINNIS MEDICAL RECORD: [id number] ACCOUNT: [id number] LOCATION:[address] : [birth year] ADMISSION DATE: 05/06/18 PCP: KRISTINA GLYNN MD HISTORY AND PHYSICAL EXAMINATION CHIEF COMPLAINT: Recurrent vomiting and fatigue. HISTORY OF PRESENT ILLNESS: The patient is an 82-year-old male who has had approximately 4 admissions for yeaqy-xe-hdleqrc pancreatitis this year. 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 Dr. Powers referred him to Dr. Silva at [facility] GI division. He was scheduled in June for an EGD, EUS, and ERCP that was delayed due to an incidentally found aortic aneurysm of 4 cm. That was followed by Dr. Deangelo Lozano, CV surgeon here [place]. Dr. Lozano cleared him for procedures. Apparently, he states he had done pretty well from last discharge, but ate some fried sausage patties 2 days ago and he developed some nausea and vomiting. He has been vomiting all Saturday night and Saturday. He took some antiemetics without improvement and came in. He denies much abdominal pain at this time. He has not had a stool in 3 days. He has not had fever. PAST MEDICAL HISTORY: Uwyvl-sl-aobdsgr pancreatitis, pancreatic cyst versus mass on head of pancreas, history of keratoacanthoma; basal cell carcinoma; BPH; aortic sclerosis; aortic aneurysm of 4.8 cm; negative stress test in 2016; osteoarthritis; and nicotine addiction with COPD. PAST SURGICAL HISTORY: As above concerning skin cancers. SOCIAL HISTORY: He has been for 5 years. He used to smoke heavily. Nondrinker for over 50 years, never drank heavily. FAMILY HISTORY: Unknown as he is adopted. DRUG ALLERGIES: None known. HOME MEDICATIONS: Verapamil 120 mg p.o. b.i.d., Xanax 0.25 t.i.d. p.r.n. anxiety, famotidine 20 mg b.i.d., PreserVision AREDS one cap p.o. b.i.d., and [place] 10/325 one q. 8 hours p.r.n. severe abdominal pain. REVIEW OF SYSTEMS: GENERAL: He has been fatigued. He has not had fever. He has had poor appetite for 2 days. HEENT: No recent new visual change, sinus congestion, or sore throat. He has mild trouble hearing. RESPIRATORY: No SOB or cough. He did have right middle lobe pneumonia on last admission and he is clinically improving. Denies hemoptysis or sputum production. He has mild dyspnea on exertion. CARDIAC: No exertional chest pain, claudication, or edema. He had negative stress test in 2016. GASTROINTESTINAL: Nausea with recurrent vomiting for the last 48 hours. Denies hematochezia or melena. Denies epigastric abdominal pain. GENITOURINARY: Nocturia once nightly with urgency. Denies dysuria. MUSCULOSKELETAL: He has chronic lumbago. PSYCHIATRIC: Denies depressed mood despite his chronic illness. INTEGUMENTARY: No recent rash or itching. HISTORY AND PHYSICAL [id number] SEKOU MCGINNIS PHYSICAL EXAMINATION: VITAL SIGNS: Temperature is 97.9 Fahrenheit, pulse 97 and regular, respirations 18, blood pressure 131/80, and sat of 90% on room air. GENERAL: The patient appears mildly ill. He is alert. HEENT: Normocephalic. Eyes are clear. Oropharynx shows dry mucous membranes. NECK: Supple without bruits or JVD. CHEST: He has distant breath sounds with decreased AP diameter. No crackles appreciated. HEART: Regular rate without MGR. PMI appropriate. ABDOMEN: Epigastrium minimally tender to deep palpation. He has pulsatile abdominal mass in the midabdomen as well. EXTREMITIES: Lower extremity exam shows no gross edema or cyanosis. GENITOURINARY: Deferred. NEUROLOGIC: He is oriented to person, place, and time. Cranial nerves are intact. Gait was not tested. LABORATORY DATA: His lab shows elevated BUN and creatinine of 32 and 2.0, glucose is 119. Alk phos 285. Amylase 178 and lipase 439. Electrolytes are normal. White count is 10,400, H&H of 11 and 35.2, and platelet count of 428,000. UA shows 2+ protein, small ketones, trace leukocyte esterase, 0-5 red and white cells, and moderate bacteria. His last CA 19-9 was 84, which was elevated; and CEA was 1.8 that was normal. ASSESSMENT: 1. Koqbv-db-mapfodg pancreatitis with intractable vomiting. 2. Prerenal azotemia from vomiting. 3. Bacteriuria. 4. Pancreatic mass versus cyst and elevated CA 19-9, worrisome for carcinoma. 5. COPD, clinically stable. 6. Nicotine addiction. PLAN: The patient will be admitted and held n.p.o. We will replace IV fluids and antiemetics as indicated. I will consult Dr. Powers to see if he can expedite his evaluation at [facility] so as to get diagnosis and hopefully decrease his frequency of hospitalization. TRANSINT:[id number] Voice Confirmation ID: [id number] DOCUMENT ID: [id number] KRISTINA GLYNN MD at 0712 CC: [id number] DICTATION DATE: 05/06/18 1320 CERTIFIED EMERGENCY VEHICLE TECHNICIAN: 05/06/18 1453 ADM IN [place] [id number] [place] [address]
[2018-05-07 07:23] LABS: BASOPHILS 0.2 % (0-2); EOSINOPHILS 1.6 % (0-7); IMMATURE GRANULOCYTES 0.2 % (0-5); LYMPHOCYTES 13.6 % (15-50); MCH 24.8 pg (26.0-34.0); MCHC 31.1 g/dL (31.0-37.0); MCV 79.8 fL (80.0-100.0); MEAN PLATELET VOLUME 9.1 fL (7.4-10.4); MONOCYTES 13.4 % (2-11)
[2018-05-07 07:29] VITALS: BP 125/63
--- NOTE | 2018-05-07 07:37 | NUR ---
REPORT RECEIVED. WILL CONTINUE WITH POC. PT CURRENTLY LYING ON RIGHT SIDE RESTING. CALL LIGHT W/I REACH. PT IS AAO AND UP AD GREGG. RR EVEN AND UNLABORED ON RA. D5LR INFUSING @125ML/HR VIA R.WRIST PIV. PT DENIES ANY NEEDS AT THIS TIME. WILL CTM.
[2018-05-07 07:38] LABS: HEMATOCRIT 26.4 % (42.0-54.0); HEMOGLOBIN 8.2 g/dL (13.5-17.5); PLATELET COUNT 263 10x3/uL (130-400); RBC 3.31 10x6/uL (4.20-6.10); WBC 5.7 10x3/uL (4.8-10.8)
[2018-05-07 07:40] LABS: ALBUMIN 2.3 g/dL (3.4-5.0); ANION GAP 11.2 mmol/L (8-16); BILIRUBIN - TOTAL 0.19 mg/dL (0.2-1.3); CALCIUM 8.4 mg/dL (8.5-10.1); CARBON DIOXIDE 24.9 mmol/L (21.0-32.0); CREATININE - SERUM 1.5 mg/dL (0.6-1.3); POTASSIUM - SERUM 4.1 mmol/L (3.5-5.1); PROTEIN - SERUM 5.2 g/dL (6.4-8.2)
[2018-05-07 09:17] VITALS: Ht 180.3 cm; Wt 65.8 kg
[2018-05-07 12:09] VITALS: BP 143/71
[2018-05-07 15:24] VITALS: BP 135/61
--- NOTE | 2018-05-07 15:28 | NUR ---
PT CURRENTLY RESTING ON RIGHT SIDE. RR EVEN AND UNLABORED ON RA. D5LR INFUSING @125ML/HR VIA R.WRIST PIV. PT DENIES ANY NEEDS. WILL CTM.
--- NOTE | 2018-05-07 18:30 | NUR ---
PT CURRENTLY LYING SUPINE. CALL LIGHT W/I REACH. RR EVEN AND UNLABORED ON RA. D5LR INFUSING @125ML/HR VIA R.WRIST PIV.PT DENIES ANY NEEDS AND VERBALIZED APPRECIATION FOR LEVEL OF CARE RECEIVED. WILL PASS REPORT AND CONTINUE WITH POC.
[2018-05-07 20:00] VITALS: BP 137/65
--- NOTE | 2018-05-07 20:37 | NUR ---
PT UP ADLIB USING THE BATHEROOM. ALERT AND ORIENTED DENIES ANY PAIN OR NEEDS AT THIS TIME. RR-EVEN AND UNLABORED. BED LOW CALL LIGHT WITHIN REACH. WILL CONTINUE TO MONITOR.
--- NOTE | 2018-05-07 23:48 | NUR ---
PT RESTING COMFORTABLY IN BED. RR-EVEN AND UNLABORED AT 16. NO S/S OF DIDTRESS.M PT ASKING WHEN HE WOULD BE TRANSFERED. I EXPAINED THAT WE ARE STILL WAITING FOR [facility] TO CALL FOR A BED ASSIGNMENT. BED LOW CALL LIGHT WITHIN REACH. WILL CONTINUE TO MONITOR.
[2018-05-08] VITALS: BP 131/80
--- NOTE | 2018-05-08 01:13 | NUR ---
CALLED [facility] TRANSFER TEAM ABOUT STATUS OF PT'S BED. [facility] STATED PT IS STILL WAITING ON BED.
--- NOTE | 2018-05-08 03:17 | NUR ---
LYING ON RT SIDE WITH EYES CLOSED. RESP EVEN AND NONLABORED. NO DISTRESS. CL IN REACH.
[2018-05-08 04:00] VITALS: BP 147/80
--- NOTE | 2018-05-08 04:35 | NUR ---
PT ANXIOUS AND ASKING WHEN HE WILL BE TRANSFERED TO [facility]. TOLD PT THAT WE ARE STILL WAITING FOR THEM TO CALL WITH A BED. PT DENIES ANY NEEDS OR PAIN AT THIS TIME. VITALS STABLE. BED LOW CALL LIGHT WITHIN REACH. WILL CINTINUE TO MONITOR.
--- NOTE | 2018-05-08 04:40 | NUR ---
SAM FROM [facility] CALLED TO CHECK PT STATUS. REPORTED VITALS ARE STABLE AND PT ANXIOUS TO GET TRANSFERED. JUNE STATES SHE WILL CALL WHEN A BED OPENS UP.
[2018-05-08 07:24] LABS: AMYLASE - SERUM 124 U/L (25-115); LIPASE 370 U/L (73-393)
[2018-05-08 07:53] VITALS: BP 145/76
--- NOTE | 2018-05-08 08:07 | NUR ---
ROUNDING DONE WITH PATIENT LAYING ON RIGHT SIDE, DENIES NEEDS AT PRESENT TIME EXCEPT WANTING TO BE TRANSFERRED TO [facility]. I INFOMRED HIM THAT WE ARE AWAITING A BED. RIGHT WRIST PIV SEEN WITH D5LR INFUSING AT 75 CC/HE. ON ROOM AIR.
--- NOTE | 2018-05-08 08:22 | NUR ---
URINE SENT TO LAB ORDERED.
[2018-05-08 11:32] VITALS: BP 130/81
--- NOTE | 2018-05-08 15:43 | NUR ---
PATIENT IS UP AMBULATING IN THE HALLWAY, PACING UP AND DOWN. STILL AWAITING [facility] TRANSFER FOR ROOM.
[2018-05-08 16:04] VITALS: BP 140/81
--- NOTE | 2018-05-08 17:41 | NUR ---
IV TO RIGHT FA IS RED AND SLIGHTY SWOLLEN. IV CATH REMOVED WITH CATH TIP INTACT. ATTEMPTED PER THIS NURSE X 2 STICKS, UNSUCCESSFUL. WILL HAVE ANOTHER NURSE ATTEMPT.
--- NOTE | 2018-05-08 19:33 | NUR ---
PT SITTING UP IN BED ALERT AND ORIENTED. PT EXPRESSED CONCERNS ABOUT WAITING ON TRANSFER BED TO [facility]. PT STATES, "IM NOT WAITING HERE FOR A WEEK TO GET A BED. I CAN WAIT AT HOME." PT ON CLEAR LIQUID DIET AND STATES, "IM STARVING." PT IS UP ADLIB AND DENies any PAIN,N,V, AT THIS TIME. BED LOW CALL LIGHT WITHIN REACH. WILL CONTINUE TO MONITOR.
[2018-05-08 20:29] VITALS: BP 167/82
[2018-05-09 00:52] VITALS: BP 147/70
--- NOTE | 2018-05-09 00:56 | NUR ---
LYING IN BED WITH EYES CLOSED. CHEST RISING AND FALLING EVENLY. NO DISTRESS. CL IN REACH.
--- NOTE | 2018-05-09 02:53 | NUR ---
PT RESTING IN BED WITH EYES CLOSED RESPIRATIONS EVEN AND UNLABORED.NO S/S OF DISTRESS. BED LOW CALL LIGHT WITHIN REAVCH. WILL CONTINUE TO MONITOR.
[2018-05-09 04:00] VITALS: BP 157/83
--- NOTE | 2018-05-09 06:39 | NUR ---
BED CONTROL FROM [facility] CALLED TO CHECK STATUS OF PT. BED CONTROL STATED A BED WOULD BE OPEN THIS AFTERNOON.
--- NOTE | 2018-05-09 07:24 | NUR ---
REPORT RECEIVED. WILL CONTINUE WITH POC. PT CURRENTLY LYING SUPINE. CALL LIGHT W/I REACH. SIDE RAIL UP X2. PT IS AAO AND UP AD GREGG. RR EVEN AND UNLABORED ON RA. L.FOR PIV IS SALINE LOCKED. PT DENIES ANY NEEDS AT THIS TIME. WILL CTM.
[2018-05-09 08:50] VITALS: BP 153/74
[2018-05-09 11:25] LABS: AMYLASE - SERUM 131 U/L (25-115); LIPASE 358 U/L (73-393)
--- NOTE | 2018-05-09 14:59 | MORECARE ---
CASE MANAGEMENT DISCHARGE SUMMARY PATIENT: SEKOU MCGINNIS UNIT: [id number] ADM DATE: 05/06/18 AGE: 82 : 35 SEX: M ROOM/BED: D.1206 AUTHOR: CORRINA DA SILVA PHYSICIAN: REFERRING PHYSICIAN: KRISTINA GLYNN MD DATE OF SERVICE: 05/09/18 Discharge Plan Patient Name: SEKOU MCGINNIS [facility] [facility] 1935 Planned Disposition: Acute Care Hospital Anticipated Discharge Date: Discharge Date: Expected LOS: Initial Reviewer: [id number] Initial Review Date: 05/09/2018 Generated: 05/09/18 3:59 pm Comments DCP- Discharge Planning Updated by [id number]: Adriana Mujica on 05/09/18 8:[address] Patient Name: SEKOU MCGINNIS Admission Status: ER Accout number: [id number] Admission Date: 05-06-2018 : 1935 Admission Diagnosis: Attending: KRISTINA GLYNN Current LOS: 3 Anticipated DC Date: Planned Disposition: Primary Insurance: MEDICARE A & B Discharge Planning Comments: CM SPOKE WITH [facility] TRANSFER CENTER AND THEY STILL DON'T HAVE A BED AVAILABLE FOR THIS PATIENT. CM WILL FOLLOW AND ASSIST NEEDED WITH DC PLANNING/NEEDS. Automation Clerk: Adriana Mujica Patient Name: SEKOU MCGINNIS Page [id number] at 7049 All edits/amendments must be made on the electronic document DICTATION DATE: 05/09/188 BAND SAW RUNNER: DELIA 05/09/18 1458 RPT#: [id number] DC DATE: STATUS: ADM IN [facility] [address] [place] [address] END OF REPORT
--- NOTE | 2018-05-11 08:50 | MORECARE ---
CASE MANAGEMENT DISCHARGE SUMMARY PATIENT: SEKOU MCGINNIS UNIT: [id number] ADM DATE: 05/06/18 AGE: 82 : 35 SEX: M ROOM/BED: D.1206 AUTHOR: CORRINA DA SILVA PHYSICIAN: REFERRING PHYSICIAN: KRISTINA GLYNN MD DATE OF SERVICE: 05/11/18 Discharge Plan Patient Name: SEKOU MCGINNIS [facility] [facility] 1935 Planned Disposition: Acute Care Hospital Anticipated Discharge Date: Discharge Date: 05/09/2018 Expected LOS: Initial Reviewer: [id number] Initial Review Date: 05/09/2018 Generated: 05/11/18 9:50 am Comments DCP- Discharge Planning Updated by [email or web address]: Adriana Mujica on 05/09/18 8:[address] Patient Name: SEKOU MCGINNIS Admission Status: ER Accout number: [id number] Admission Date: 05-06-2018 : 1935 Admission Diagnosis: Attending: KRISTINA GLYNN Current LOS: 3 Anticipated DC Date: Planned Disposition: Primary Insurance: MEDICARE A & B Discharge Planning Comments: CM SPOKE WITH [facility] TRANSFER CENTER AND THEY STILL DON'T HAVE A BED AVAILABLE FOR THIS PATIENT. CM WILL FOLLOW AND ASSIST NEEDED WITH DC PLANNING/NEEDS. E Learning Specialist: Adriana El DP export: 05/09/18 1:59 p Patient Name: SEKOU MCGINNIS Page 62409 at 0850 All edits/amendments must be made on the electronic document DICTATION DATE: 05/11/18 0849 FINISH REPAIR WORKER: DELIA 05/11/18 0849 RPT#: [id number] DC DATE:05/09/18 STATUS: DIS IN [facility] [address] [place] [address] END OF REPORT
== END 2018-05-09 22:30 | disposition short-term general hospital (02) | DRG 438 ==
LOC: D.ER 07:55 → D.M3 10:42 → D.EDHOLD 10:42 → D.M3 14:51
PROVIDERS: Emergency Medicine; Internal Medicine Gastroenterology; ADMIT Family Medicine
DX: K85.90 Acute pancreatitis without necrosis or infection, unspecified (principal); J18.1 Lobar pneumonia, unspecified organism; N13.30 Unspecified hydronephrosis; J44.9 Chronic obstructive pulmonary disease, unspecified; I10 Essential (primary) hypertension; K86.9 Disease of pancreas, unspecified; N28.9 Disorder of kidney and ureter, unspecified; D64.9 Anemia, unspecified; F41.9 Anxiety disorder, unspecified; I71.4 Abdominal aortic aneurysm, without rupture